=== PATIENT | male | born 1975 | race Caucasian/White ===

== ENCOUNTER 2019-10-04 06:50 | Emergency (ER) | payer OTHER ==
[~2019-10-04] VITALS: Ht 167.6 cm; Wt 77.1 kg
[~2019-10-04 06:50] MED LIST: ASPIR-LOW81 MG PO; DELTASONE20 MG PO; LOPRESSOR5 MG/5 ML PO; LUBRICANT EYE3.5 G2 OPTH; POLYTRIM EYE DR10 ML OD; ZITHROMAX250 MG PO
[2019-10-04] MEDS ORDERED: ALL DAY ALLERGY10 M3 PO (07:05)
[2019-10-04] MEDS ORDERED: ACID REDUCER20 M1 PO (07:05)
[2019-10-04] MEDS ORDERED: SALINE NASAL SP88 ML NAS (07:06)
[2019-10-04] MEDS ORDERED: XARELTO15 MG PO (10:51)
--- NOTE | 2019-10-04 17:58 | EKG ---
[facility] [address] [facility] [place] [address] Signed Atrial fibrillation with rapid ventricular response Abnormal ECG When compared with ECG of 26-AUG-2018 15:19, Atrial fibrillation has replaced Sinus rhythm Vent. rate has increased BY 91 BPM QRS duration has decreased ST now depressed in Anterior leads Confirmed by LESIA FELIX MD ([id number]) on 10/04/2019 5:57:51 PM Electronically Signed By: LESIA FELIX MD 10/04/19 1758 PATIENT NAME: PARISH SOUZA LANDY Electrocardiogram DATE OF : 77 PHYSICIAN: LESIA FELIX MD REPORT #: [id number] REPORT IS CONFIDENTIAL AND NOT TO BE RELEASED WITHOUT AUTHORIZATION
== END 2019-10-04 11:05 | disposition home or self-care (01) ==
LOC: ED 06:50
DX: I48.91 Unspecified atrial fibrillation (principal); I10 Essential (primary) hypertension; Z79.899 Other long term (current) drug therapy; Z79.82 Long term (current) use of aspirin
CPT/HCPCS: 71045; 80053; 83880; 84484; 85025; 85379; 85610; 85730; 93005; 93010; 96361; 96374; 99285-25; J1650; J7030

== ENCOUNTER 2019-10-28 14:03 | Emergency (ER) | payer OTHER ==
[~2019-10-28] VITALS: Ht 167.6 cm; Wt 77.1 kg
[~2019-10-28 14:03] MED LIST changes: +ACID REDUCER20 M1 PO; +ALL DAY ALLERGY10 M3 PO; +SALINE NASAL SP88 ML NAS; +XARELTO15 MG PO
--- OUTSIDE RECORDS SUMMARY | 2019-10-28 14:06 | XMS ---
PreManage Notification: PARISH SOUZA Security Emergency Veterinarian Events No recent Security Events currently on file CRITERIA MET - [facility] - 2 Visits in 30 Days CARE PROVIDERS There are no care providers on record at this time. Bayron has no Care Guidelines for this patient. Claud[facility] (12 MO.) [facility] T[facility] NOTE: Visits indicate total known visits. 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
[2019-10-28] MEDS ORDERED: COUMADIN6 MG PO (14:14)
[2019-10-28] MEDS ORDERED: JANTOVEN3 MG PO (14:17)
--- NOTE | 2019-10-28 19:40 | EKG ---
[facility] [address] [facility] [place], [place] [address] Signed Atrial fibrillation Rightward axis Abnormal ECG Confirmed by JOSE ALBERTO VALLE DO ([id number]) on 10/28/2019 7:40:12 PM Electronically Signed By: JOSE ALBERTO VALLE DO 10/28/191939 PATIENT NAME: PARISH SOUZA LANDY Electrocardiogram DATE OF : 77 PHYSICIAN: JOSE ALBERTO VALLE DO REPORT #: [id number] REPORT IS CONFIDENTIAL AND NOT TO BE RELEASED WITHOUT AUTHORIZATION
--- NOTE | 2019-10-28 19:41 | EKG ---
[facility] [address] [facility] [place], [place] [address] Signed Normal sinus rhythm Rightward axis Borderline ECG Confirmed by JOSE ALBERTO VALLE DO ([id number]) on 10/28/2019 7:41:03 PM Electronically Signed By: JOSE ALBERTO VALLE DO 10/28/191940 PATIENT NAME: PARISH SOUZA LANDY Electrocardiogram DATE OF : 77 PHYSICIAN: JOSE ALBERTO VALLE DO REPORT #: [id number] REPORT IS CONFIDENTIAL AND NOT TO BE RELEASED WITHOUT AUTHORIZATION
== END 2019-10-28 19:10 | disposition home or self-care (01) ==
LOC: ED 14:03
DX: I48.91 Unspecified atrial fibrillation (principal); I10 Essential (primary) hypertension; Z87.891 Personal history of nicotine dependence; Z79.899 Other long term (current) drug therapy; Z79.82 Long term (current) use of aspirin; Z79.01 Long term (current) use of anticoagulants
CPT/HCPCS: 71045; 80048; 83735; 84484; 85025; 85610; 93005; 93010; 96361; 99152; 99285-25; J2270; J2704; J7030

== ENCOUNTER 2020-02-23 20:27 | Emergency (ER) | payer OTHER ==
[~2020-02-23] VITALS: Ht 167.6 cm; Wt 77.1 kg
[~2020-02-23 20:27] MED LIST changes: +COUMADIN6 MG PO; +JANTOVEN3 MG PO
[2020-02-23] MEDS ORDERED: METOPROLOL SUCC50 MG PO (20:39)
--- NOTE | 2020-02-24 14:27 | EKG ---
[facility] [address] [facility] [place], [place] [address] Signed Normal sinus rhythm Rightward axis Borderline ECG When compared with ECG of 28-OCT-2019 17:54, QRS duration has increased Confirmed by JOSE ALBERTO VALLE DO ([id number]) on 02/24/2020 2:27:07 PM Electronically Signed By: JOSE ALBERTO VALLE DO 02/24/20 1427 PATIENT NAME: PARISH SOUZA LANDY Electrocardiogram DATE OF : [birth year] PHYSICIAN: JOSE ALBERTO VALLE DO REPORT #: [id number] REPORT IS CONFIDENTIAL AND NOT TO BE RELEASED WITHOUT AUTHORIZATION
== END 2020-02-23 23:15 | disposition home or self-care (01) ==
LOC: ED 20:27
DX: I48.0 Paroxysmal atrial fibrillation (principal); I10 Essential (primary) hypertension; K21.9 Gastro-esophageal reflux disease without esophagitis; Z87.891 Personal history of nicotine dependence; Z79.82 Long term (current) use of aspirin; Z79.899 Other long term (current) drug therapy
CPT/HCPCS: 71045; 80053; 83735; 84484; 85025; 93005; 93010; 99284-25

== ENCOUNTER 2020-03-18 20:32 | Emergency (ER) | payer OTHER ==
[~2020-03-18] VITALS: Ht 167.6 cm; Wt 79.4 kg
--- OUTSIDE RECORDS SUMMARY | ~2020-03-18 | XMS | Encounter Summary ---
Demographics + + + | Address | [address] | | | [place] [address] | + + + | Home Phone | | + + + | Preferred Language | Unknown | + + + | Marital Status | Unknown | + + + | Druze Affiliation | Unknown | + + + | Race | Unknown | + + + | Ethnic Group | Unknown | + + + Author + + + | Author | [facility] | | | and [place] | + + + | Organization | [facility] | | | and [place] | + + + | Address | Unknown | + + + | Phone | Unavailable | + + + Support + + +---------+ + | Name | Relationship | Address | Phone | + + +---------+ + | [place] | ECON | Unknown | | | [facility]rections | | | | + + +---------+ + Care Team Providers + +------+ + | Care Salesperson Terrazzo [employer] Name | Role | Phone | + +------+ + | Marilin MarieP | PCP | | + +------+ + Reason for Referral Evaluate & Treat (Routine) +--------+ + + + + + | Status | Reason | Specialty | Diagnoses / | Referred By | Referred To | | | | | Procedures | Contact | Contact | +--------+ + + + + + | Closed | Specialty | Cardiology | Diagnoses | Sixto, | Robbin, | | | Services | | Paroxysmal | MD Renee | Gerson | | | Required | | atrial | [address] | MD [address] | | | | | fibrillation | [address] | [address] | | | | | ([facility]) | [address] | [address] | | | | | | [facility] [place] | [place] | | | | | | [address] | [address] Phone: | | | | | | Phone: | [phone] | | | | | | [phone] | Fax: | | | | | | Fax: | [phone] | | | | | | [phone] | | +--------+ + + + + + Reason for Visit + + + | Reason | Comments | + + + | Follow-up | | + + + Evaluate & Treat (Routine) +--------+--------+ + + + + | Status | Reason | Specialty | Diagnoses / | Referred By | Referred To | | | | | Procedures | Contact | Contact | +--------+--------+ + + + + | Closed | | Cardiology | Diagnoses | Frank, | Sixto | | | | | Unspecified | Marilin | MD Renee | | | | | atrial | TERESA SilverP | [address] | | | | | fibrillation | [address] | [address] | | | | | ([facility]) | [place] | [place], [place] | | | | | Dizziness | [place], | [address] Phone: | | | | | and | [place] | [phone] | | | | | giddiness | [address] | Fax: | | | | | Procedures | Phone: | [phone] | | | | | Consult | [phone] | | | | | | | Fax: | | | | | | | [phone] | | +--------+--------+ + + + + Encounter Details +--------+---------+ + + + | Date | Type | Department | Care Team | Description | +--------+---------+ + + + | 12/10/ | Office | [facility] | Renee Pollard, | Paroxysmal atrial | | 2020 | Visit | CARDIOLOGY [place] | [address] | fibrillation ([facility]) | | | | [address] | [place], [place] | (Primary Dx) | | | | [address] | [address] | | | | | [place] | | | | | | [address] | | | | | | [phone] | | | +--------+---------+ + + + Social History + +-------+ [...] + + documented as of this encounter Last Filed Vital Signs + + + + + | Vital Sign | Reading | Time Taken | Comments | + + + + + | Blood Pressure | 100/64 | 12/11/2019 8:58 AM | LEFT 102/68 | | | | PDT | | + + + + + | Pulse | 68 | 12/11/2019 8:58 AM | | | | | PDT | | + + + + + | Temperature | - | - | | + + + + + | Respiratory Rate | - | - | | + + + + + | Oxygen Saturation | 92% | 12/11/2019 8:58 AM | | | | | PDT | | + + + + + | Inhaled Oxygen | - | - | | | Concentration | | | | + + + + + | Weight | 78.9 kg (174 lb) | 12/11/2019 8:58 AM | | | | | PDT | | + + + + + | Height | 167.6 cm (5' 6") | 12/11/2019 8:58 AM | | | | | PDT | | + + + + + | Body Mass Index | 28.08 | 12/11/2019 8:58 AM | | | | | PDT | | + + + + + documented in this encounter Progress Notes Renee Pollard MD - 12/11/2019 9:00 AM PDTFormatting of this note might be different f rom the original. Date of visit: 12/11/2019 Primary Care Physician: ALEKSANDRA Jenkins CHIEF COMPLAINT: Chief Complaint Patient presents with Follow-up HISTORY OF PRESENT ILLNESS: Sanjay is 44 y.o. here for evaluation of palpitation, was diagnosed with paroxysmal atrial fi brillation. [facility]. Noted to having episodes of palpitation at young age. Usually associated with chest discom fort and some dizziness. He was evaluated by cardiology at young age of 32 had an event mon itor at that time, had an episode while reading he was taken to emergency room at that time. Then he was started on metoprolol however he never was compliant with it. Recently was ev aluated at [facility] twice in September and again in October, he was cardioverte d in October with 100 J synchronized shock was started on increased dose of metoprolol 50 m g daily. Continues to have rare episodes. Usually associated with vision changes. No history of diabetes or hypertension. Denies any smoking or alcohol abuse. Past medical history, SH, FH, and medications were reviewed in the chart. Medications: Outpatient Encounter Medications as of 12/11/2019 Medication Sig Dispense Refill aspirin 81 mg EC tablet Take 81 mg by mouth Daily. cetirizine (ZYRTEC) 10 mg tablet Take 10 mg by mouth Daily. metoprolol tartrate (LOPRESSOR) 50 mg tablet Take 50 mg by mouth Daily. omeprazole (PRILOSEC) 20 mg capsule Take 20 mg by mouth every morning (before breakfast ). Saline (SODIUM CHLORIDE NA) 104 mLs by Nasal route. warfarin (COUMADIN) 5 mg tablet Take 5 mg by mouth Daily. No facility-administered encounter medications on file as of 12/11/2019. Allergies Allergies Allergen Reactions Ibuprofen Other (See Comments) Urinating and couging blood. Generic Ibuprofen REVIEW OF SYSTEMS: Constitutional: negative for fatigue. No fever, chills, and rigors. No report of weight ch angelica. HEENT: Negative for nosebleeds, ear discharge, nasal congestion or soar throat. Eyes: Negative for visual disturbance, redness, or secretion. Respiratory: Negative for cough, sputum production, hemoptysis, wheezing. Cardiovascular: As HPI. Gastrointestinal: Negative for nausea, vomiting, diarrhea, abdominal pain and blood in stoo l. Genitourinary: Negative for dysuria or hematuria. Musculoskeletal: Negative for myalgias, back pain or arthralgia. Skin: Negative for rash. Neurological: Negative for dizziness. No numbness. No recent falls. No slurred speech. Hematological: No significant bruising. Psychiatric/Behavioral: No depression or anxiety. PHYSICAL EXAM Vital Signs: BP 100/64 Comment: LEFT 102/68 | Pulse 68 | Ht 1.676 m (5' 6") | Wt 78.9 kg (174 lb) | S pO2 92% | BMI 28.08 kg/m GENERAL APPEARANCE: Alert, oriented, cooperative, no distress, appears stated age. HEENT: Extraocular movements were intact. No jaundice. Pupiles round and reactive. NECK: No JVD, lymphadenopathy. Carotid upstrokes normal. No carotid bruit heard. CARDIAC: Regular rhythm and rate. There is normal S1 and S2. No galop. No murmur. CHEST: Normal bilateral symmetrical chest excursion.ackles or wheezing. No evidence of dull ness. ABDOMEN: Soft.No tenderness or guarding. No palpable organs. Active bowel sounds. EXTREMITIES: No lower extremities edema, cyanosis or clubbing. NEURO: Alert and oriented times three with no focal deficit. Cranial nerves are grossly no rmal. SKIN: Warm and dry. No rash. Psych: Normal affect and mood. DATA 10/28/2019 WBC 8.7, hemoglobin 17.4, platelets 275, sodium 140, potassium 3.3, chloride 104, bicarb 26 , BUN 17, creatinine 1.626, GFR 62, magnesium 2.2, troponin less than 0.01. No results found for: NA, K, CO2, BUN, CREA, CALCIUM, MG No results found for: WBC, HGB, HCT, MCV, LABPLAT No results found for: ALT, CHOL, TRIG, HDL, LDLEX, GLUF, TSH EC10/28/2019 Normal sinus rhythm, right axis. 10/28/2019 From [facility] reviewed showed atrial fibrillation with a heart rate of 93 bpm . Last Echo: 2017 Normal LV and function EF 60%. Normal right ventricular size and function. No significant valvular pathology. Last Stress test: Last Cath: Last US carotid: ASSESSMENT: Patient is 44 y.o. with 1. Paroxysmal atrial fibrillation, CHADSVASc score of 0. Plan: Reviewed patient's records. Cussed with the patient rhythm versus rate control strategy, treatment options and anticoag ulation. At this time patient score of 0 and his warfarin can be stopped and patient can be treated with aspirin. Metoprolol tartrate will be changed to metoprolol succinate 50 mg daily. Propafenone 450 mg once daily as needed for palpitations/atrial fibrillation can be used. If patient have recurrent episodes of atrial fibrillation done flecainide will be started. Will be referred for electrophysiology evaluation in regard to atrial fibrillation ablation . Will call with any change in symptoms. Thank you for allowing us the chance to participate in the care of this patient. *This report has been prepared using a voice recognition system. The report was reviewed fo r accuracy, however, sound-alike word errors, addition and/or deletions may occur. If there is any question about this report please contact me. Renee Pollard MD, MPH documented in this encounter Plan of Treatment +--------+ + + + + | Date | Type | Specialty | Care Team | Description | +--------+ + + + + | 03/19/ | Appointment | Radiology | Gerson Rey | | | 2019 | | | MD Clark [address] | | | | | | [address] | | | | | | [place] [address] | | | | | | [phone] | | | | | | | | +--------+ + + + + | 03/19/ | Hospital | Radiology | Gerson Rey | | 2019 | Encounter | | MD Clark [address] | | | | | | [address] | | | | | | [place] [address] | | | | | | [phone] | | | | | | | | | | | | Imaging, [facility] | | +--------+ + + + + | 04/01/ | Office | Cardiology | Gerson Rey | | | 2019 | Visit | | MD Nino Rodas | | | | | | [address] | | | | | | [place] [address] | | | | | | [phone] | | | | | | | | +--------+ + + + + | 07/15/ | Office | Cardiology | Renee Pollard, | | | 2019 | Visit | | MD Nino JONES | | | | | | [place] | | | | | | [address] | | | | | | | | +--------+ + + + + + + +--------+ + + | Name | Type | Priori | Associated Diagnoses | Order Schedule | | | | ty | | | + + +--------+ + + | Ambulatory referral | Outpatient | Routin | Paroxysmal atrial | Ordered: 12/11/2019 | | to [facility] Cardiac | Referral | e | fibrillation (HCC) | | | Electrophysiology | | | | | | [place] | | | | | + + +--------+ + + documented as of this encounter Procedures + +--------+ + + + | Procedure Name | Priori | Date/Time | Associated Diagnosis | Comments | | | ty | | | | + +--------+ + + + | LABS - EXTERNAL SCAN | | 12/19/2019 | | Results for this | | | | 12:00 AM | | procedure are in the | | | | PDT | | results section. | + +--------+ + + + documented in this encounter Results LABS - EXTERNAL SCAN (12/19/2019 12:00 AM PDT) + + + | Narrative | Performed At | + + + | Ordered by an | | | unspecified provider. | | + + + documented in this encounter Visit Diagnoses + + | Diagnosis | + + | Paroxysmal atrial fibrillation (HCC) - Primary Atrial fibrillation | + + documented in this encounter
--- OUTSIDE RECORDS SUMMARY | ~2020-03-18 | XMS | Clinical Summary ---
Demographics + + + | Address | [address] | | | [place] [address] | + + + | Home Phone | | + + + | Preferred Language | Unknown | + + + | Marital Status | Unknown | + + + | Christian Affiliation | Unknown | + + + | Race | Unknown | + + + | Ethnic Group | Unknown | + + + Author + + + | Author | [facility] | | | and [place] | + + + | Organization | [facility] | | | and [place] | + + + | Address | Unknown | + + + | Phone | Unavailable | + + + Support + + +---------+ + | Name | Relationship | Address | Phone | + + +---------+ + | [place] | ECON | Unknown | | | Corrections | | | | + + +---------+ + Care Team Providers + +------+ + | Care Preforms Laminator Name | Role | Phone | + +------+ + | Marilin MarieP | PCP | | + +------+ + Allergies + + + + + + | Active Allergy | Reactions | Severity | Noted | Comments | | | | | Date | | + + + + + + | Ibuprofen | Other (See Comments) | | 12/11/19 | Urinating and | | | | | 20 | couging blood. | | | | | | Generic Ibuprofen | + + + + + + Medications + + + +---------+------+------+-------+ | Medication | Sig | Dispensed | Refills | Star | End | Statu | | | | | | t | Date | s | | | | | | Date | | | + + + +---------+------+------+-------+ | cetirizine | Take 10 mg by mouth | | 0 | | | Activ | | (ZYRTEC) 10 mg | Daily. | | | | | e | | tablet | | | | | | | + + + +---------+------+------+-------+ | omeprazole | Take 20 mg by mouth | | 0 | | | Activ | | (PRILOSEC) 20 mg | every morning | | | | | e | | capsule | (before breakfast). | | | | | | + + + +---------+------+------+-------+ | Saline (SODIUM | 104 mLs by Nasal | | 0 | | | Activ | | CHLORIDE NA) | route. | | | | | e | + + + +---------+------+------+-------+ | metoprolol | Take 1 tablet by | 90 | 2 | 04/0 | | Activ | | succinate | mouth Daily. | tablet | | 1/20 | | e | | (TOPROL-XL) 50 mg 24 | | | | 20 | | | | hr tablet | | | | | | | + + + +---------+------+------+-------+ | propafenone | Take 1.5 tablets by | 90 | 3 | 04/0 | 04/0 | Activ | | (RYTHMOL) 300 MG | mouth Daily as | tablet | | 1/20 | 1/20 | e | | tablet | needed (for atrial | | | 20 | 21 | | | | fibrillation). | | | | | | + + + +---------+------+------+-------+ | aspirin 325 mg EC | Take 1 tablet by | | 0 | 05/0 | | Activ | | tabletIndications: | mouth Daily. | | | 02/28 | | e | | Paroxysmal atrial | | | | 20 | | | | fibrillation (HCC) | | | | | | | + + + +---------+------+------+-------+ Active Problems + + + | Problem | Noted Date | + + + | Paroxysmal atrial fibrillation | 01/10/2017 | + + + Encounters +--------+ + + + + | Date | Type | Specialty | Care Team | Description | +--------+ + + + + | 06/03/ | Office | Cardiology | Deandra Rey | Paroxysmal atrial | | 2019 | Visit | | MD [facility] | fibrillation (HCC) | | | | | | (Primary Dx) | +--------+ + + + + | 01/14/ | Office | Cardiology | Deandra Rey | Paroxysmal atrial | | 2019 | Visit | | MD [facility] | fibrillation (HCC) | | | | | | (Primary Dx) | +--------+ + + + + | 12/17/ | Telephone | Cardiology | Renee Henson, | Medication Question | | 2019 | | | | (Propafenone) | +--------+ + + + + from Last 3 Months Family History + +------+--------+ + | Relation | Name | Status | Comments | + +------+--------+ + | Mother | | Alive | | + +------+--------+ + Social History + +-------+ +--------+------+ | [...] on file | | + + + Last Filed Vital Signs + + + + + | Vital Sign | Reading | Time Taken | Comments | + + + + + | Blood Pressure | 135/82 | 02/12/2020 8:30 AM | | | | | PDT | | + + + + + | Pulse | 71 | 02/12/2020 8:30 AM | | | | | PDT | | + + + + + | Temperature | - | - | | + + + + + | Respiratory Rate | - | - | | + + + + + | Oxygen Saturation | 95% | 02/12/2020 8:30 AM | | | | | PDT | | + + + + + | Inhaled Oxygen | - | - | | | Concentration | | | | + + + + + | Weight | 77.6 kg (171 lb) | 02/12/2020 8:30 AM | | | | | PDT | | + + + + + | Height | 167.6 cm (5' 6") | 02/12/2020 8:30 AM | | | | | PDT | | + + + + + | Body Mass Index | 27.6 | 02/12/2020 8:30 AM | | | | | PDT | | + + + + + Plan of Treatment +--------+ + + + + | Date | Type | Specialty | Care Team | Description | +--------+ + + + + | 03/19/ | Appointment | Radiology | Deandra Rey | | | 2019 | | | MD [facility] [address] | | | | | [address] | | | | | | [place] [address] | | | | | | [phone] | | | | | | | | +--------+ + + + + | 03/19/ | Hospital | Radiology | Deandra Rey | | 2019 | Encounter | | MD Nino Rodas | | | | | | [address] | | | | | | [place] [address] | | | | | | [phone] | | | | | | | | | | | | [facility], [facility] FURRIER DESIGNER | | +--------+ + + + + | 04/01/ | Office | Cardiology | Deandra Rey | | | 2019 | Visit | | MD Nino Rodas | | | | | | [address] | | | | | | [place] [address] | | | | | | [phone] | | | | | | | | +--------+ + + + + | 07/15/ | Office | Cardiology | Renee Henson, | | | 2019 | Visit | | MD Nino JONES | | | | | | [place] | | | | | | [address] | | | | | | | | +--------+ + + + + + + +-------+ + | Health Maintenance | Due Date | Last | Comments | | | | Done | | + + +-------+ + | Vaccine: | | | | | Dtap/Tdap/Td (1 - | 5 | | | | Tdap) | | | | + + +-------+ + | Vaccine: Influenza | | | | | (#1) | 0 | | | + + +-------+ + Procedures + +--------+ + + + | Procedure Name | Priori | Date/Time | Associated Diagnosis | Comments | | | ty | | | | + +--------+ + + + | ECG 12 LEAD | Routin | 02/12/2020 | Paroxysmal atrial | Results for this | | | e | 8:27 AM | fibrillation (HCC) | procedure are in the | | | | PDT | | results section. | + +--------+ + + + | ECG 12 LEAD | Routin | 01/15/2020 | Paroxysmal atrial | Results for this | | | e | 9:36 AM | fibrillation (HCC) | procedure are in the | | | | PDT | | results section. | + +--------+ + + + | LABS - EXTERNAL SCAN | | 12/19/2019 | | Results for this | | | | 12:00 AM | | procedure are in the | | | | PDT | | results section. | + +--------+ + + + from Last 3 Months Results ECG 12 lead (02/12/2020 8:27 AM PDT)Only the most recent of 2 results within the time marilee od is included. + + + + + + | Component | Value | Ref Range | Performed | Pathologist | | | | | At | Signature | + + + + + + | VENTRICULAR | 70 | BPM | [facility] | | | RATE EKG | | | | | + + + + + + | ATRIAL RATE | 70 | BPM | [facility] | | + + + + + + | P-R | 154 | ms | [facility] | | | INTERVAL | | | | | + + + + + + | QRS | 100 | ms | [facility] | | | DURATION | | | | | + + + + + + | Q-T | 364 | ms | [facility] | | | INTERVAL | | | | | + + + + + + | Q-T | 393 | ms | [facility] | | | INTERVAL | | | | | | (CORRECTED) | | | | | + + + + + + | P WAVE AXIS | 48 | degrees | [facility] | | + + + + + + | QRS AXIS | 73 | degrees | [facility] | | + + + + + + | T AXIS | 52 | degrees | [facility] | | + + + + + + | INTERPRETAT | Please refer to | | [facility] | | | ION TEXT | Providers office visit | | | | | | note for Providers | | | | | | Interpretation.Confirmed | | | | | | by DEANDRA REY MD | | | | | | ([id number]) on 02/17/2020 | | | | | | 9:36:58 AM | | | | + + + + + + + + | Specimen | + + | | + + + + + | Narrative | Performed At | + + + | | | + + + + +---------+ + + | Performing | Address | City/State/Zipcode | Phone Number | | Organization | | | | + +---------+ + + | [facility] | | | | + +---------+ + + LABS - EXTERNAL SCAN (12/19/2019 12:00 AM PDT) + + + | Narrative | Performed At | + + + | Ordered by an | | | unspecified provider. | | + + + from Last 3 Months Insurance + +--------+ +--------+-------+---------+--------+ | Payer | Benefi | Subscriber | Effect | Phone | Address | Type | | | t Plan | ID | chauncey | | | | | | / | | Dates | | | | | | Group | | | | | | + +--------+ +--------+-------+---------+--------+ | DEPARTMENT OF | CORRCT | [id number] | | | | Indemn | | CORRECTIONS | [place] | | 014-Pr | | | ity | | | HLTH | | esent | | | | | | FIRST | | | | | | | | [place] | | | | | | + +--------+ +--------+-------+---------+--------+ + +--------+ +--------+ + + | Guarantor Name | Accoun | Relation to | Date | Phone | Billing Address | | | t Type | Patient | of | | | | | | | | | | + +--------+ +--------+ + + | CORRECTIONS,MICHELL | Corpor | Employer | [birth year] | | [address] | | [place] | ate | | 1900 | [phone] | [address] [facility] | | | | | | [address] (Home) | [place] [address] | | | | | | [phone] | | | | | | | 0 (Work) | | + +--------+ +--------+ + + Advance Directives + + + + + | Type | Date Recorded | Patient | Explanation | | | | Chief Green Officer | | + + + + + | Power of | | | | | Tire Servicer | | | | + + + + + | Advance | | | | | Directive | | | | + + + + +
--- OUTSIDE RECORDS SUMMARY | ~2020-03-18 | XMS | Encounter Summary ---
Demographics + + + | Address | [address] | | | [place] [address] | + + + | Home Phone | | + + + | Preferred Language | Unknown | + + + | Marital Status | Unknown | + + + | Moravian Affiliation | Unknown | + + + | Race | Unknown | + + + | Ethnic Group | Unknown | + + + Author + + + | Author | [facility] | | | and [place] | + + + | Organization | [facility] | | | and [place] | + + + | Address | Unknown | + + + | Phone | Unavailable | + + + Support + + +---------+ + | Name | Relationship | Address | Phone | + + +---------+ + | [place] | ECON | Unknown | | | Corrections | | | | + + +---------+ + Care Team Providers + +------+ + | Care Mobile Game Engineer Name | Role | Phone | + +------+ + | Marilin MarieP | PCP | | + +------+ + Reason for Visit + +--------+ + | Reason | Onset | Comments | | | Date | | + +--------+ + | Medication Question | 12/17/ | Propafenone | | | 2020 | | + +--------+ + Encounter Details +--------+ + + + + | Date | Type | Department | Care Team | Description | +--------+ + + + + | 12/17/ | Telephone | [facility] | Renee Henson, | Medication Question | | 2019 | | CARDIOLOGY ALESS[place]O | [address] | (Propafenone) | | | | [address] | [place], [place] | | | | | [address] | [address] | | | | | [place] | | | | | | [address] | | | | | | [phone] | | | +--------+ + + + [...] + + documented as of this encounter Miscellaneous Notes Telephone Encounter - Brendon Wilburn Sand Carrier - 12/18/2019 10:54 AM PDTCalled N P to inform, he states understanding with no further questions. MALCOLM Grey elep wei Encounter - Brendon Wilburn Medical Assistant - 12/18/2019 10:54 AM PDT----- Message from Renee Henson MD sent at 12/18/2019 8:50 AM PDT ----- It is 450 mg as needed once daily for atrial fibrillation. ----- Message ----- From: Wendy Grey Assistant Sent: 12/17/2019 3:14 PM PDT To: Renee Henson MD [facility] [employer] [facility] wanted to confirm dose of Propafenone. States patient was previously on 300mg, but new script was written for 450mg. They are wanting to confirm he is to increase PRN to 450mg. Please advise. ----- Message ----- From: Diana Zepeda CMA Sent: 12/17/2019 1:08 PM PDT To: Wendy Grey ph. [phone] docum ented in this encounter Plan of Treatment +--------+ + + + + | Date | Type | Specialty | Care Team | Description | +--------+ + + + + | 03/19/ | Appointment | Radiology | Gerson Rey | | | 2019 | | | MD Nino Rodas | | | | | | [address] | | | | | | [place] [address] | | | | | | [phone] | | | | | | | | +--------+ + + + + | 03/19/ | Hospital | Radiology | Gerson Rey | | | 2019 | Encounter | | MD Nino Rodas | | | | | | [address] | | | | | | [place] [address] | | | | | | [phone] | | | | | | | | | | | | Imaging, [facility] PSYCHIATRIC TECHNICIAN ASSISTANT | | +--------+ + + + + | 04/01/ | Office | Cardiology | Gerson Rey | | | 2019 | Visit | | MD Nino Rodas | | | | | | [address] | | | | | | [place] [address] | | | | | | [phone] | | | | | | | | +--------+ + + + + | 07/15/ | Office | Cardiology | Renee Henson, | | | 2019 | Visit | | MD Nino JONES | | | | | | [place] | | | | | | [address] | | | | | | | | +--------+ + + + + documented as of this encounter Visit Diagnoses Not on filedocumented in this encounter"
--- OUTSIDE RECORDS SUMMARY | ~2020-03-18 | XMS | Encounter Summary ---
Demographics + + + | Address | [address] | | | [place] [address] | + + + | Home Phone | | + + + | Preferred Language | Unknown | + + + | Marital Status | Unknown | + + + | Shinto Affiliation | Unknown | + + + | Race | Unknown | + + + | Ethnic Group | Unknown | + + + Author + + + | Author | [facility] | | | and [place] | + + + | Organization | [facility] | | | and [place] | + + + | Address | Unknown | + + + | Phone | Unavailable | + + + Support + + +---------+ + | Name | Relationship | Address | Phone | + + +---------+ + | [place] | ECON | Unknown | | | Corrections | | | | + + +---------+ + Care Team Providers + +------+ + | Care Communication Center Operator Name | Role | Phone | + +------+ + | Aidan Goncalves MD | PCP | | + +------+ + Encounter Details +--------+ + + + + | Date | Type | Department | Care Team | Description | +--------+ + + + + | 03/31/ | Orders Only | [facility] | Renee Henson, | | | 2017 | | CONVERSION [address] | [address] | | [address] | [place] | | | | | [place] | [address] | | | | | [address] | | | | | | [phone] | | | +--------+ + + + + Social History + +-------+ +--------+------+ | Tobacco Use | Types | Packs/Day | Years | Date | | | | | Used | | + +-------+ +--------+------+ | Former Smoker | | | | | + +-------+ +--------+------+ + + + | Sex Assigned at | Date Recorded | | | | + + + | Not on file | | + + + documented as of this encounter Plan of Treatment +--------+ + + + + | Date | Type | Specialty | Care Team | Description | +--------+ + + + + | 03/19/ | Appointment | Radiology | Gerson Rey | | | 2019 | | | [address] | | | | | | [address] | | | | | | [place] [address] | | | | | | [phone] | | | | | | | | +--------+ + + + + | 03/19/ | Hospital | Radiology | Gerson Rey | | | 2019 | Encounter | | MD [address] | | | | | | [address] | | | | | | [place] [address] | | | | | | [phone] | | | | | | | | | | | | Imaging, [facility] 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 | | +--------+ + + + + | 04/01/ | Office | Cardiology | Gerson Rey | | | 2019 | Visit | | MD [address] | | | | | | [address] | | | | | | [place] [address] | | | | | | [phone] | | | | | | | | +--------+ + + + + | 07/15/ | Office | Cardiology | Renee Henson, | | | 2019 | Visit | | [address] | | | | | | [place] [facility] [place] | | | | | | [address] | | | | | | | | +--------+ + + + + documented as of this encounter Procedures + +--------+ + + + | Procedure Name | Priori | Date/Time | Associated Diagnosis | Comments | | | ty | | | | + +--------+ + + + | ECHO INTERPRETATION | Routin | 03/31/2017 | | Results for this | | OF OUTSIDE FILMS | e | 7:19 AM | | procedure are in the | | | | PDT | | results section. | + +--------+ + + + documented in this encounter Results ECHO Interpretation of Outside Films (03/31/2017 7:19 AM PDT) + + | Specimen | + + | | + + + + + | Impressions | Performed At | + + + | 1. The left ventricle is normal in size, wall thickness and systolic | | | function EF 55-60%. 2. The right ventricle is normal in size and | | | systolic function. 3. No significant valvular pathology. 4. There is | | | no pericardial effusion. | | + + + + + + | Narrative | Performed At | + + + | Patient Name: Sanjay Sweeney Date of : 1975 | | | Performing Physician: Renee Henson | | | | | | INDICATIONS Paroxysmal A-fib CONCLUSIONS | | | 1. The left ventricle is normal in size, wall thickness | | | and systolic function EF 55-60%. 2. The right ventricle is normal in | | | size and systolic function. 3. No significant valvular pathology. 4. | | | There is no pericardial effusion. FINDINGS -------- ECG rhythm: | | | Sinus rhythm. ECG rhythm: Resting bradycardia (HR<60bpm). Study: A | | | 2-dimensional transthoracic echocardiogram with m-mode, spectral and | | | color flow Doppler was perfomed. Study: This was a technically | | | adequate study. Left Ventricle: Overall left ventricular systolic | | | function is normal with, an EF between 55 - 60 %. Left Ventricle: The | | | left ventricle cavity size is normal. Left Ventricle: Left | | | ventricular wall thickness is normal. Left Ventricle: No regional | | | wall motion abnormalities. Left Ventricle: The diastolic filling | | | pattern is normal for the age of the patient. Right Ventricle: The | | | right ventricle is normal in size. Right Ventricle: The right | | | ventricular systolic function is normal. Left Atrium: The left atrium | | | is normal in size. Right Atrium: The right atrium is normal in size. | | | Aortic Valve: The aortic valve is trileaflet and appears | | | structurally normal. Aortic Valve: There is no evidence of aortic | | | regurgitation. Aortic Valve: There is no evidence of aortic stenosis. | | | Mitral Valve: The mitral valve is normal. Mitral Valve: There is | | | trace mitral regurgitation. Mitral Valve: Mild thickening of the | | | anterior mitral valve leaflet. Tricuspid Valve: The tricuspid valve | | | appears structurally normal. Tricuspid Valve: Trace tricuspid | | | regurgitation present. Tricuspid Valve: There is no evidence of | | | pulmonary hypertension. Tricuspid Valve: The right ventricular | | | systolic pressure (pulmonary artery systolic pressure), as measured by | | | Doppler, is 23.77mmHg. Pulmonic Valve: The pulmonic valve is normal. | | | Pulmonic Valve: Trace pulmonic regurgitation. Pulmonic Valve: No | | | significant valvular pathology. Pericardium: There is no pericardial | | | effusion. Pericardium: No pleural effusion seen. IVC/Hepatic Veins: | | | The IVC is normal size (1.5-2.5cm) and collapses >50% with sniff, | | | consistent with central venous pressures of 5-10mmHg. Aorta: The | | | aortic root, ascending aorta and aortic arch are withi normal | | | dimensions. MEASUREMENTS Ao asc: 2.97 cm Ao | | | Diam: 3.33 cm Ao sinus: 3.[address] junct: 2.84 cm IVC: | | | 1.54 cm LA Diam: 3.85 cm LA Major: 4.69 cm EDV(Teich): | | | 123.49 ml IVSd: 0.88 cm LVIDd: 5.09 cm LVPWd: 0.98 cm | | | LVOT Area: 3.86 cm2 LVOT Diam: 2.21 cm %FS: 31.77 % | | | EF(Teich): 59.49 % ESV(Teich): 50.01 ml LVIDs: 3.47 cm | | | SV(Teich): 73.47 ml RA Major: 4.62 cm RV Major: 6.53 cm | | | RVIDd: 2.40 cm LVEF MOD A2C: 61.79 % SV MOD A2C: 66.16 ml | | | LVEF MOD A4C: 51.68 % SV MOD A4C: 53.37 ml EF Biplane: | | | 55.52 % LVEDV MOD BP: 106.08 ml LVESV MOD BP: 47.17 ml LVEDV | | | MOD A2C: 107.06 ml LVLd A2C: 7.57 cm LVEDV MOD A4C: 103.25 | | | ml LVLd A4C: 7.72 cm LVESV MOD A2C: 40.90 ml LVLs A2C: | | | 6.04 cm LVESV MOD A4C: 49.88 ml LVLs A4C: 6.67 cm LAESV(A-L): | | | 47.60 ml LAESV Index (A-L): 25.73 ml/m2 LAAs A2C: 16.22 | | | cm2 LAESV A-L A2C: 43.96 ml LALs A2C: 5.08 cm LAAs A4C: | | | 16.75 cm2 LAESV A-L A4C: 49.15 ml LALs A4C: 4.84 cm RAAs: | | | 13.81 cm2 RAESV A-L: 33.83 ml RAESV MOD: 33.16 ml RALs: | | | 4.78 cm TAPSE: 2.49 cm AV maxP.63 mmHg AV meanP.44 | | | mmHg AV Vmax: 1.18 m/s AV Vmean: 0.90 m/s AV VTI: 25.14 | | | cm KAEL Vmax: 3.19 cm2 KAEL (VTI): 2.97 cm2 AVAI Vmax: 0.00 | | | cm2/m2 AVAI (VTI): 0.00 cm2/m2 LVOT maxP.84 mmHg LVOT | | | meanP.98 mmHg LVSI Dopp: 40.44 ml/m2 LVSV Dopp: 74.81 | | | ml LVOT Vmax: 0.98 m/s LVOT Vmean: 0.63 m/s LVOT VTI: | | | 19.34 cm MV A Deacon: 0.50 m/s MV DecT: 167.58 ms MV E Deacon: | | | 0.53 m/s MV E/A Ratio: 1.04 MV PHT: 48.59 ms MVA By PHT: | | | 4.52 cm2 Septal e': 0.08 m/s Septal E/e': 6.60 Lateral e': | | | 0.11 m/s Lateral E/e': 4.84 RAP: 5 mmHg RVSP: 23.76 mmHg | | | TR maxP.76 mmHg TR Vmax: 2.16 m/s Public Service Officer: ALYSIA | | | Authenticated by: Renee Henson Report Date/Time: 04-03-2017 | | | 19:23:20 | | + + + + + | Procedure Note | + + | Rad [facility]ano Conversion - 05/02/2019 8:01 PM PDT Patient Name: Estrellita Sweeney of | | : 1975 Performing Physician: Renee | | [place] INDICATIONS------ | | -----Paroxysmal A-fib CONCLUSIONS 1. The left ventricle is normal in size, | | wall thickness and systolic function EF 55-60%.2. The right ventricle is normal in size | | and systolic function.3. No significant valvular pathology.4. There is no pericardial | | effusion. FINDINGS--------ECG rhythm: Sinus rhythm.ECG rhythm: Resting bradycardia | | (HR<60bpm).Study: A 2-dimensional transthoracic echocardiogram with m-mode, spectral and | | color flow Doppler was perfomed.Study: This was a technically adequate study.Left | | Ventricle: Overall left ventricular systolic function is normal with, an EF between 55 - | | 60 %.Left Ventricle: The left ventricle cavity size is normal.Left Ventricle: Left | | ventricular wall thickness is normal.Left Ventricle: No regional wall motion | | abnormalities.Left Ventricle: The diastolic filling pattern is normal for the age of the | | patient.Right Ventricle: The right ventricle is normal in size.Right Ventricle: The | | right ventricular systolic function is normal.Left Atrium: The left atrium is normal in | | size.Right Atrium: The right atrium is normal in size.Aortic Valve: The aortic valve is | | trileaflet and appears structurally normal.Aortic Valve: There is no evidence of aortic | | regurgitation.Aortic Valve: There is no evidence of aortic stenosis.Mitral Valve: The | | mitral valve is normal.Mitral Valve: There is trace mitral regurgitation.Mitral Valve: | | Mild thickening of the anterior mitral valve leaflet.Tricuspid Valve: The tricuspid | | valve appears structurally normal.Tricuspid Valve: Trace tricuspid regurgitation | | present.Tricuspid Valve: There is no evidence of pulmonary hypertension.Tricuspid Valve: | | The right ventricular systolic pressure (pulmonary artery systolic pressure), as | | measured by Doppler, is 23.77mmHg.Pulmonic Valve: The pulmonic valve is normal.Pulmonic | | Valve: Trace pulmonic regurgitation.Pulmonic Valve: No significant valvular | | pathology.Pericardium: There is no pericardial effusion.Pericardium: No pleural effusion | | seen.IVC/Hepatic Veins: The IVC is normal size (1.5-2.5cm) and collapses >50% with | | sniff, consistent with central venous pressures of 5-10mmHg.Aorta: The aortic root, | | ascending aorta and aortic arch are withi normal dimensions. MEASUREMENTS Ao | | asc: 2.97 cmAo Diam: 3.33 cmAo sinus: 3.[address] junct: 2.84 cmIVC: 1.54 | | cmLA Diam: 3.85 cmLA Major: 4.69 cmEDV(Teich): 123.49 mlIVSd: 0.88 cmLVIDd: | | 5.09 cmLVPWd: 0.98 cmLVOT Area: 3.86 [id number] Diam: 2.21 cm%FS: 31.77 %EF(Teich): | | 59.49 %ESV(Teich): 50.01 mlLVIDs: 3.47 cmSV(Teich): 73.47 mlRA Major: 4.62 | | cmRV Major: 6.53 cmRVIDd: 2.40 cmLVEF MOD A2C: 61.79 %SV MOD A2C: 66.16 mlLVEF | | MOD A4C: 51.68 %SV MOD A4C: 53.37 mlEF Biplane: 55.52 %LVEDV MOD BP: 106.08 | | mlLVESV MOD BP: 47.17 mlLVEDV MOD A2C: 107.06 mlLVLd A2C: 7.57 cmLVEDV MOD A4C: | | 103.25 mlLVLd A4C: 7.72 cmLVESV MOD A2C: 40.90 mlLVLs A2C: 6.04 cmLVESV MOD A4C: | | 49.88 mlLVLs A4C: 6.67 cmLAESV(A-L): 47.60 mlLAESV Index (A-L): 25.73 ml/m2LAAs | | A2C: 16.22 [id number] A-L A2C: 43.96 mlLALs A2C: 5.08 cmLAAs A4C: 16.75 [id number] | | A-L A4C: 49.15 mlLALs A4C: 4.84 cmRAAs: 13.81 [id number] A-L: 33.83 mlRAESV MOD: | | 33.16 mlRALs: 4.78 cmTAPSE: 2.49 cmAV maxP.63 mmHgAV meanP.44 mmHgAV | | Vmax: 1.18 m/Tara Vmean: 0.90 m/Tara VTI: 25.14 cmAVA Vmax: 3.19 cm2AVA (VTI): | | 2.97 [id number] Vmax: 0.00 cm2/m2AVAI (VTI): 0.00 cm2/m2LVOT maxP.84 mmHgLVOT | | meanP.98 mmHgLVSI Dopp: 40.44 ml/m2LVSV Dopp: 74.81 mlLVOT Vmax: 0.98 | | m/sLVOT Vmean: 0.63 m/sLVOT VTI: 19.34 cmMV A Deacon: 0.50 m/sMV DecT: 167.58 msMV | | E Deacon: 0.53 m/sMV E/A Ratio: 1.04MV PHT: 48.59 msMVA By PHT: 4.52 [id number] e': | | 0.08 m/sSeptal E/e': 6.60Lateral e': 0.11 m/sLateral E/e': 4.84RAP: 5 | | mmHgRVSP: 23.76 mmHgTR maxP.76 mmHgTR Vmax: 2.16 m/s Public Service Officer: | | DHAuthenticated by: [facility] Date/Time: 04-03-2017 19:23:20 IMPRESSION: 1. | | The left ventricle is normal in size, wall thickness and systolic function EF 55-60%.2. | | The right ventricle is normal in size and systolic function.3. No significant valvular | | pathology.4. There is no pericardial effusion. | |MEASUREMENTS | | | |Ao asc: 2.97 cm | |Ao Diam: 3.33 cm | |Ao sinus: 3.22 cm | |Ao st junct: 2.84 cm | |IVC: 1.54 cm | |LA Diam: 3.85 cm | |LA Major: 4.69 cm | |EDV(Teich): 123.49 ml | |IVSd: 0.88 cm | |LVIDd: 5.09 cm | |LVPWd: 0.98 cm | |LVOT Area: 3.86 cm2 | |LVOT Diam: 2.21 cm | |%FS: 31.77 % | |EF(Teich): 59.49 % | |ESV(Teich): 50.01 ml | |LVIDs: 3.47 cm | |SV(Teich): 73.47 ml | |RA Major: 4.62 cm | |RV Major: 6.53 cm | |RVIDd: 2.40 cm | |LVEF MOD A2C: 61.79 % | |SV MOD A2C: 66.16 ml | |LVEF MOD A4C: 51.68 % | |SV MOD A4C: 53.37 ml | |EF Biplane: 55.52 % | |LVEDV MOD BP: 106.08 ml | |LVESV MOD BP: 47.17 ml | |LVEDV MOD A2C: 107.06 ml | |LVLd A2C: 7.57 cm | |LVEDV MOD A4C: 103.25 ml | |LVLd A4C: 7.72 cm | |LVESV MOD A2C: 40.90 ml | |LVLs A2C: 6.04 cm | |LVESV MOD A4C: 49.88 ml | |LVLs A4C: 6.67 cm | |LAESV(A-L): 47.60 ml | |LAESV Index (A-L): 25.73 ml/m2 | |LAAs A2C: 16.22 cm2 | |LAESV A-L A2C: 43.96 ml | |LALs A2C: 5.08 cm | |LAAs A4C: 16.75 cm2 | |LAESV A-L A4C: 49.15 ml | |LALs A4C: 4.84 cm | |RAAs: 13.81 cm2 | |RAESV A-L: 33.83 ml | |RAESV MOD: 33.16 ml | |RALs: 4.78 cm | |TAPSE: 2.49 cm | |AV maxP.63 mmHg | |AV meanP.44 mmHg | |AV Vmax: 1.18 m/s | |AV Vmean: 0.90 m/s | |AV VTI: 25.14 cm | |KAEL Vmax: 3.19 cm2 | |KAEL (VTI): 2.97 cm2 | |AVAI Vmax: 0.00 cm2/m2 | |AVAI (VTI): 0.00 cm2/m2 | |LVOT maxP.84 mmHg | |LVOT meanP.98 mmHg | |LVSI Dopp: 40.44 ml/m2 | |LVSV Dopp: 74.81 ml | |LVOT Vmax: 0.98 m/s | |LVOT Vmean: 0.63 m/s | |LVOT VTI: 19.34 cm | |MV A Deacon: 0.50 m/s | |MV DecT: 167.58 ms | |MV E Deacon: 0.53 m/s | |MV E/A Ratio: 1.04 | |MV PHT: 48.59 ms | |MVA By PHT: 4.52 cm2 | |Septal e': 0.08 m/s | |Septal E/e': 6.60 | |Lateral e': 0.11 m/s | |Lateral E/e': 4.84 | |RAP: 5 mmHg | |RVSP: 23.76 mmHg | |TR maxP.76 mmHg | |TR Vmax: 2.16 m/s | | | |Public Service Officer: ALYSIA | |Authenticated by: Renee Henson | |Report Date/Time: 04-03-2017 19:23:20 | | | |IMPRESSION: | |1. The left ventricle is normal in size, wall thickness and systolic function EF 55-60%. | |2. The right ventricle is normal in size and systolic function. | |3. No significant valvular pathology. | |4. There is no pericardial effusion. | + + documented in this encounter Visit Diagnoses Not on filedocumented in this encounter"
--- OUTSIDE RECORDS SUMMARY | ~2020-03-18 | XMS | Encounter Summary ---
Demographics + + + | Address | [address] | | | [place] [address] | + + + | Home Phone | | + + + | Preferred Language | Unknown | + + + | Marital Status | Unknown | + + + | Voodoo Affiliation | Unknown | + + + | Race | Unknown | + + + | Ethnic Group | Unknown | + + + Author + + + | Author | [facility] | | | and [place] | + + + | Organization | [facility] | | | and [place] | + + + | Address | Unknown | + + + | Phone | Unavailable | + + + Support + + +---------+ + | Name | Relationship | Address | Phone | + + +---------+ + | [place] | ECON | Unknown | | | Corrections | | | | + + +---------+ + Care Team Providers + +------+ + | Care Heat And Frost Insulator Name | Role | Phone | + +------+ + | Marilin MarieP | PCP | | + +------+ + Reason for Referral Diagnostic/Screening (Routine) + +--------+ + + + + | Status | Reason | Specialty | Diagnoses / | Referred By | Referred To | | | | | Procedures | Contact | Contact | + +--------+ + + + + | Authorized | | Radiology | Diagnoses | Krissy | Anastasia Mri | | | | | Paroxysmal | Deandra | [address] | | | | | atrial | MD Clark | [address] | | | | | fibrillation | [address] | [place], [place] | | | | | (HCC) | [place] | [address] | | | | | Procedures | [place] | Phone: | | | | | NM Nuclear | [place], [place] | [phone] | | | | | Stress Test | [address] | Fax: | | | | | (Vasodilator | Phone: | [phone] | | | | | ) | [phone] | | | | | | | Fax: | | | | | | | [phone] | | + +--------+ + + + + Diagnostic/Screening (Routine) + +--------+ + + + + | Status | Reason | Specialty | Diagnoses / | Referred By | Referred To | | | | | Procedures | Contact | Contact | + +--------+ + + + + | Authorized | | Radiology | Diagnoses | Krissy, | [facility] | | | | | Paroxysmal | Deandra | REGIONAL | | | | | atrial | MD Clark | MEDICAL | | | | | fibrillation | [address] | CENTER [address] | | | | | ([facility]) | [address] | [address] | | | | | Procedures | [place] | [place], [place] | | | | | ECHO | [place], [place] | [address] | | | | | Complete | [address] | Phone: | | | | | | Phone: | [phone] | | | | | | [phone] | Fax: | | | | | | Fax: | [phone] | | | | | | [phone] | | + +--------+ + + + + Reason for Visit [...] | Cardiology | Diagnoses | Sixto, | Krissy, | | | Services | | Paroxysmal | MD Renee | Deandra | | | Required | | atrial | [address] | [address] | | | | | fibrillation | [address] | [address] | | | | | ([facility]) | [address] | [address] | | | | | | [place], [place] | [place], [place] | | | | | | [address] | [address] Phone: | | | | | | Phone: | [phone] | | | | | | [phone] | Fax: | | | | | | Fax: | [phone] | | | | | | [phone] | | +--------+ + + + + + Encounter Details +--------+---------+ + + + | Date | Type | Department | Care Team | Description | +--------+---------+ + + + | 01/14/ | Office | [facility] EP | Deandra Rey | Paroxysmal atrial | | 2020 | Visit | CARDIOLOGY [facility] | MD [address] | fibrillation ([facility]) | | | | [address] | [address] | (Primary Dx) | | | | [place], [place] | [place] [address] | | | | | [address] | [phone] | | | | | [phone] | | | +--------+---------+ + + + [...] EF 55-60%, tr MR, tr TR, tr ID, RVSP 24 History reviewed. 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 | | +--------+ + + + + | 04/01/ | Office | Cardiology | Deandra Rey | | | 2019 | Visit | | MD [address] | | | | | | [address] | | | | | | [place] [address] | | | | | | [phone] | | | | | | | | +--------+ + + + + | 07/15/ | Office | Cardiology | Renee Henson, | | | 2019 | Visit | | [address] | | | | | | [place] | | | | | | [address] | | | | | | | | +--------+ + + + + + + +--------+ + + | Name | Type | Priori | Associated Diagnoses | Order Schedule | | | | ty | | | + + +--------+ + + | ECHO Complete | Echocardiog | Routin | Paroxysmal atrial | Expected: | | | garth | e | fibrillation (HCC) | 01/15/2020, Expires: | | | | | | 01/14/2021 | + + +--------+ + + | NM Nuclear Stress | Cardiac | Routin | Paroxysmal atrial | Expected: | | Test (Vasodilator) | Nuclear | e | fibrillation (HCC) | 01/15/2020, Expires: | | | Medicine | | | 01/14/2021 | + + +--------+ + + documented [...] in this encounter Results ECG 12 lead (01/15/2020 9:36 AM PDT) [...] MD | | | | | | ([id number]) on 01/15/2020 | | | | | [...]
--- OUTSIDE RECORDS SUMMARY | ~2020-03-18 | XMS | Encounter Summary ---
Demographics + + + | Address | [address] | | | [place] [address] | + + + | Home Phone | | + + + | Preferred Language | Unknown | + + + | Marital Status | Unknown | + + + | Anabaptism Affiliation | Unknown | + + + | Race | Unknown | + + + | Ethnic Group | Unknown | + + + Author + + + | Author | [facility] | | | and [place] | + + + | Organization | [facility] | | | and [place] | + + + | Address | Unknown | + + + | Phone | Unavailable | + + + Support + + +---------+ + | Name | Relationship | Address | Phone | + + +---------+ + | [place] | ECON | Unknown | | | Corrections | | | | + + +---------+ + Care Team Providers + +------+ + | Care Public Health Policy Analyst Name | Role | Phone | + [...] + + | 02/11/ | Office | [facility] EP | Deandra Rey | Paroxysmal atrial | | 2020 | Visit | CARDIOLOGY [place] | MD [address] | fibrillation (HCC) | | | | [address] | [address] | (Primary Dx) | | | | [place], [place] | [place] [address] | | | | | [address] | [phone] | | | | | [phone] | | | +--------+---------+ + + + [...] with some issues with scheduling with the custodial. He does not believ e he has [...] EF 55-60%, tr MR, tr TR, tr UT, RVSP 24 History reviewed. 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
[~2020-03-18 20:32] MED LIST changes: +METOPROLOL SUCC50 MG PO
--- OUTSIDE RECORDS SUMMARY | 2020-03-18 20:34 | XMS ---
PreManage Notification: PARISH SOUZA Security Education Technician Events No recent Security Events currently on file CRITERIA MET - [facility] - 2 Visits in 30 Days CARE PROVIDERS There are no care providers on record at this time. Bayron has no Care Guidelines for this patient. Claudine VISIT COUNT (12 MO.) 4 [facility] TOTAL 4 NOTE: Visits indicate total known visits. ED/C VISIT TRACKING (12 MO.) 03/18/2020 20:[facility] [place] TYPE: Emergency COMPLAINT: - CHEST PAIN 02/23/2020 20:28 [facility] [place] TYPE: Emergency COMPLAINT: - CHEST PAIN DIAGNOSES: - Essential (primary) hypertension - Other longterm (current) drug therapy - prison (current) use of aspirin - Personal history of nicotine dependence - Paroxysmal atrial fibrillation - Gastro-esophageal reflux disease without esophagitis 10/28/2019 14:03 [facility] [place] TYPE: Emergency COMPLAINT: - CHEST PAIN DIAGNOSES: - intermediate card tender (current) use of aspirin - prison (current) use of anticoagulants - Other longterm (current) drug therapy - Unspecified atrial fibrillation - Personal history of nicotine dependence - Essential (primary) hypertension - Chest pain, unspecified 10/04/2019 06:50 [facility] [place] TYPE: Emergency COMPLAINT: - RAPID HEART RATE DIAGNOSES: - Unspecified atrial fibrillation - Palpitations - Essential (primary) hypertension - prison (current) use of aspirin - Other longterm (current) drug therapy INPATIENT VISIT TRACKING (12 MO.) No inpatient visits to display in this time frame [email or web address]
--- NOTE | 2020-03-18 22:34 | EKG ---
[facility] [address] [facility] [place] [address] Signed Normal sinus rhythm Rightward axis Borderline ECG When compared with ECG of 23-FEB-2020 20:32, No significant change was found Confirmed by LESIA FELIX MD ([id number]) on 03/18/2020 10:34:51 PM Electronically Signed By: LESIA FELIX MD 03/18/20 2234 PATIENT NAME: SARITA SOUZAJayashree BILL Electrocardiogram DATE OF : 77 PHYSICIAN: LESIA FELIX MD REPORT #: [id number] REPORT IS CONFIDENTIAL AND NOT TO BE RELEASED WITHOUT AUTHORIZATION
== END 2020-03-18 22:11 | disposition home or self-care (01) ==
LOC: ED 20:32
DX: R07.9 Chest pain, unspecified (principal); I10 Essential (primary) hypertension; K21.9 Gastro-esophageal reflux disease without esophagitis; I48.91 Unspecified atrial fibrillation; Z87.891 Personal history of nicotine dependence; Z79.82 Long term (current) use of aspirin; Z79.899 Other long term (current) drug therapy
CPT/HCPCS: 71045; 80053; 83735; 84484; 85025; 93005; 93010; 99285-25

== ENCOUNTER 2020-03-20 22:54 | Emergency (ER) | payer OTHER ==
[~2020-03-20] VITALS: Ht 167.6 cm; Wt 79.4 kg
--- OUTSIDE RECORDS SUMMARY | ~2020-03-20 | XMS | Encounter Summary ---
Demographics + + + | Address | [address] | | | [place] [address] | + + + | Home Phone | | + + + | Preferred Language | Unknown | + + + | Marital Status | Unknown | + + + | Advent Affiliation | Unknown | + + + | Race | Unknown | + + + | Ethnic Group | Unknown | + + + Author + + + | Author | [facility] | | | and [place] | + + + | Organization | [facility] | | | and [place] | + + + | Address | Unknown | + + + | Phone | Unavailable | + + + Support + + +---------+ + | Name | Relationship | Address | Phone | + + +---------+ + | [place] | ECON | Unknown | | | Corrections | | | | + + +---------+ + Care Team Providers + +------+ + | Care Photo Checker And Assembler Name | Role | Phone | + +------+ + | Marilin MarieP | PCP | | + +------+ + Reason for Referral Diagnostic/Screening (Routine) +--------+--------+ + + + + | Status | Reason | Specialty | Diagnoses / | Referred By | Referred To | | | | | Procedures | Contact | Contact | +--------+--------+ + + + + | Closed | | Radiology | Diagnoses | Krissy, | [facility] | | | | | Paroxysmal | Gerson | [address] | | | | | atrial | MD Clark | [address] | | | | | fibrillation | [address] | [place], [place] | | | | | (HCC) | [address] | [address] | | | | | Procedures | MANUEL [address] | Phone: | | | | | NM Nuclear | [place], [place] | [phone] | | | | | Stress Test | [id number] | Fax: | | | | | (Vasodilator | Phone: | [phone] | | | | | ) | [phone] | | | | | | | Fax: | | | | | | | [phone] | | +--------+--------+ + + + + Reason for Visit Diagnostic/Screening (Routine) +--------+--------+ + + + + | Status | Reason | Specialty | Diagnoses / | Referred By | Referred To | | | | | Procedures | Contact | Contact | +--------+--------+ + + + + | Closed | | Radiology | Diagnoses | Krissy, | [facility] | | | | | Paroxysmal | Gerson | [address] | | | | | atrial | MD Clark | [address] | | | | | fibrillation | [address] | [place], [place] | | | | | (HCC) | [address] | [address] | | | | | Procedures | MANUEL F | Phone: | | | | | NM Nuclear | [place], [place] | [phone] | | | | | Stress Test | [address] | Fax: | | | | | (Vasodilator | Phone: | [phone] | | | | | ) | [phone] | | | | | | | Fax: | | | | | | | [phone] | | +--------+--------+ + + + + Encounter Details +--------+ + + + + | Date | Type | Department | Care Team | Description | +--------+ + + + + | 03/19/ | Hospital | [facility] | Gerson Rey | Paroxysmal atrial | | 2019 | Encounter | [facility] | [address] | fibrillation (HCC) | | | | NUCLEAR MEDICINE | [address] | | | | | [address] | [place] [address] | | | | | [place], [place] | [phone] | | | | | [address] | | | | | | [phone] | [place], [facility] [place] [facility] | | +--------+ + + + + Social History + +-------+ +--------+------+ | Tobacco Use | Types | Packs/Day | Years | Date | | | | | Used | | + +-------+ +--------+------+ | Former Smoker | | | | | + +-------+ +--------+------+ + +---+---+---+ | Smokeless Tobacco: | | | | | Never Used | | | | + +---+---+---+ + + +---------+ + | Alcohol Use | Drinks/Week | oz/Week | Comments | + + +---------+ + | Not Currently | | | Alcoholic | | | | | Drinks/day: | | | | | moderation- past use | + + +---------+ + + + + | Sex Assigned at | Date Recorded | | | | + + + | Not on file | | + + + documented as of this encounter Medications at Time of Discharge + + + +---------+ + + | Medication | Sig | Dispensed | Refills | Start | End Date | | | | | | Date | | + + + +---------+ + + | aspirin 325 mg EC | Take 1 tablet by | | 0 | 01/15/20 | | | tabletIndications: | mouth Daily. | | | 20 | | | Paroxysmal atrial | | | | | | | fibrillation (HCC) | | | | | | + + + +---------+ + + | cetirizine | Take 10 mg by mouth | | 0 | | | | (ZYRTEC) 10 mg | Daily. | | | | | | tablet | | | | | | + + + +---------+ + + | metoprolol | Take 1 tablet by | 90 | 2 | 12/11/19 | | | succinate | mouth Daily. | tablet | | 20 | | | (TOPROL-XL) 50 mg 24 | | | | | | | hr tablet | | | | | | + + + +---------+ + + | omeprazole | Take 20 mg by mouth | | 0 | | | | (PRILOSEC) 20 mg | every morning | | | | | | capsule | (before breakfast). | | | | | + + + +---------+ + + | propafenone | Take 1.5 tablets by | 90 | 3 | 12/11/19 | | | (RYTHMOL) 300 MG | mouth Daily as | tablet | | 20 | 1 | | tablet | needed (for atrial | | | | | | | fibrillation). | | | | | + + + +---------+ + + | Saline (SODIUM | 104 mLs by Nasal | | 0 | | | | CHLORIDE NA) | route. | | | | | + + + +---------+ + + documented as of this encounter Plan of Treatment +--------+---------+ + + + | Date | Type | Specialty | Care Team | Description | +--------+---------+ + + + | 04/01/ | Office | Cardiology | Gerson Rey | | | 2019 | Visit | | MD [address] | | | | | | [address] | | | | | | [place] [address] | | | | | | [phone] | | | | | | | | +--------+---------+ + + + | 07/15/ | Office | Cardiology | Renee Henson, | | | 2019 | Visit | | MD [address]ON[address] | | | | | | [place] | | | | | | [address] | | | | | | | | +--------+---------+ + + + documented as of this encounter Procedures + +--------+ + + + | Procedure Name | Priori | Date/Time | Associated Diagnosis | Comments | | | ty | | | | + +--------+ + + + | NM NUCLEAR STRESS | Routin | 03/19/2020 | Paroxysmal atrial | Results for this | | TEST (PHARMACOLOGIC | e | 5:44 PM | fibrillation (HCC) | procedure are in the | | - VASODILATOR) | | PDT | | results section. | + +--------+ + + + documented in this encounter Results NM Nuclear Stress Test (Vasodilator) (03/19/2020 5:44 PM PDT) + +--------+ + + + | Component | Value | Ref Range | Performed | Pathologist | | | | | At | Signature | + +--------+ + + + | BASELINE | 54 | bpm | [facility] | | | HEART RATE | | | | | + +--------+ + + + | BASELINE | 116/83 | mmHg | [facility] | | | BLOOD | | | | | | PRESSURE | | | | | + +--------+ + + + | PEAK HEART | 112 | | [facility] | | | RATE | | | | | + +--------+ + + + | PEAK BLOOD | 126/84 | mmHG | [facility] | | | PRESSURE | | | | | + +--------+ + + + | Target HR | 150 | | [facility] | | + +--------+ + + + | Percent HR | 63 | | [facility] | | + +--------+ + + + | Max | 177 | | [facility] | | | Predicted | | | | | | HR | | | | | + +--------+ + + + | LVEF-SPECT | 62 | % | [facility] | | | NUCLEAR | | | | | | STRESS/VIAB | | | | | | ILITY | | | | | + +--------+ + + + | NM stress | 100 | | [facility] | | | end | | | | | | diastolic | | | | | | volume | | | | | + +--------+ + + + | NM stress | 38 | | [facility] | | | end | | | | | | systolic | | | | | | volume | | | | | + +--------+ + + + | NM rest end | 87 | | [facility] | | | diastolic | | | | | | volume | | | | | + +--------+ + + + | NM rest end | 44 | | [facility] | | | systolic | | | | | | volume | | | | | + +--------+ + + + | TID VALUE | 0.96 | | [facility] | | + +--------+ + + + | ST | 0.0 | mm | [facility] | | | Elevation | | | | | | (mm) | | | | | + +--------+ + + + + + | Specimen | + + | | + + + + + | Narrative | Performed At | + + + | 1. Baseline | [facility] | | sinus rhythm with no significant ST or T wave abnormalities2. | | | Uneventful infusion with no ST changes or chest discomfort3. Normal | | | perfusion pattern both at rest and during exercise4. Normal wall | | | motion and wall thickening with ejection fraction of 50% at rest and | | | 62% at the end of infusion5. This is a low risk stress test | | + + + + + | Procedure Note | + + | Sergio Heredia MD - 03/19/2020 5:48 PM PDT 1. Baseline sinus rhythm with no | | significant ST or T wave abnormalities2. Uneventful infusion with no ST changes or chest | | discomfort3. Normal perfusion pattern both at rest and during exercise4. Normal wall | | motion and wall thickening with ejection fraction of 50% at rest and 62% at the end of | | infusion5. This is a low risk stress test | + + + +---------+ + + | Performing | Address | City/State/Zipcode | Phone Number | | Organization | | | | + +---------+ + + | [facility] | | | | + +---------+ + + documented in this encounter Visit Diagnoses + + | Diagnosis | + + | Paroxysmal atrial fibrillation (HCC) Atrial fibrillation | + + documented in this encounter Administered Medications + +--------+ +--------+------+------+ | Medication Order | MAR | Action | Dose | Rate | Site | | | Action | Date | | | | + +--------+ +--------+------+------+ | regadenoson (LEXISCAN) | Given | 03/19/20 | 0.4 mg | | | | injection 0.4 mg 0.4 mg, | | 20 1:41 | | | | | Intravenous, ONCE PRN, stress, | | PM PDT | | | | | Starting [facility] 03/19/20 at 1150, For | | | | | | | 1 dose, Give IV push over 10 | | | | | | | seconds, then follow immediately | | | | | | | with 5 mL saline flush., Nuclear | | | | | | | Medicine | | | | | | + +--------+ +--------+------+------+ +---+---+ | | | +---+---+ + +-------+ + +---+---+ | technetium TC-99M sestamibi | Given | 03/19/20 | 10.5 | | | | (CARDIOLITE) injection 10.5 | | 20 11:51 | millicur | | | | millicurie 10.5 millicurie, | | AM PDT | ies | | | | Intravenous, ONCE PRN, Other, | | | | | | | Starting [facility] 03/19/20 at 1151, For | | | | | | | 1 dose, Nuclear Medicine | | | | | | + +-------+ + +---+---+ +---+---+ | | | +---+---+ + +-------+ + +---+---+ | technetium TC-99M sestamibi | Given | 03/19/20 | 30.9 | | | | (CARDIOLITE) injection 30.9 | | 20 1:41 | millicur | | | | millicurie 30.9 millicurie, | | PM PDT | ies | | | | Intravenous, ONCE PRN, Other, | | | | | | | Starting [facility] 03/19/20 at 1151, For | | | | | | | 1 dose, Nuclear Medicine | | | | | | + +-------+ + +---+---+ +---+---+ | | | +---+---+ documented in this encounter"
--- OUTSIDE RECORDS SUMMARY | ~2020-03-20 | XMS | Encounter Summary ---
Demographics + + + | Address | [address] | | | [place] [address] | + + + | Home Phone | | + + + | Preferred Language | Unknown | + + + | Marital Status | Unknown | + + + | Mormon Affiliation | Unknown | + + + | Race | Unknown | + + + | Ethnic Group | Unknown | + + + Author + + + | Author | [facility] | | | and [place] | + + + | Organization | [facility] | | | and [place] | + + + | Address | Unknown | + + + | Phone | Unavailable | + + + Support + + +---------+ + | Name | Relationship | Address | Phone | + + +---------+ + | [place] | ECON | Unknown | | | Corrections | | | | + + +---------+ + Care Team Providers + +------+ + | Care System Designer Name | Role | Phone | + +------+ + | Marilin Marie | PCP | | + +------+ + Reason for Visit + + + | Reason | Comments | + + + | Follow-up | | + + + Encounter Details +--------+---------+ + + + | Date | Type | Department | Care Team | Description | +--------+---------+ + + + | 02/11/ | Office | [facility] | Deandra Rey | Paroxysmal atrial | | 2020 | Visit | CARDIOLOGY [place] | [address] | fibrillation (HCC) | | | | [address] | [address] | (Primary Dx) | | | | [place], [place] | [place] [address] | | | | | [address] | [phone] | | | | | [phone] | | | +--------+---------+ + + + [...] + documented in this encounter Progress Notes Deandra Rey MD - 02/12/2020 8:30 AM PDTFormatting of this note might be dif ferent from the original. Subjective: Referring MD: No ref. provider found Chief Complaint Patient presents with Follow-up HPI: This is a 44 y.o. male who presents today for follow-up of atrial fibrillation. Mr. Jordyn mccormack unfortunately did not have his echocardiogram and stress test performed since his last visit. This had to do with [facility] He does not believ e he has had any recurrent atrial fibrillation since his last visit. He continues to do his usual activity without any new limitations or symptoms. He denies any current chest pain, shortness of breath, dizziness, lightheadedness, or recent syncope. Past Medical History: Diagnosis Date Atrial fibrillation (HCC) CVN 10/31 - propafenone PRN Past Surgical History: Procedure Laterality Date LEG SURGERY Right TRANSTHORACIC ECHOCARDIOGRAM 03/2017 EF 55-60%, tr MR, tr TR, tr [place], RVSP 24 History reviewed. No pertinent family history. Social History Socioeconomic History Marital status: Unknown Spouse name: Not on file Number of children: Not on file Years of education: Not on file Highest education level: Not on file Tobacco Use Smoking status: Former Smoker Smokeless tobacco: Never Used Substance and Sexual Activity Alcohol use: Not Currently Comment: Alcoholic Drinks/day: moderation- past use Drug use: Not Currently Review of Systems: Ten system review negative unless noted in HPI. Current Outpatient Medications Medication Sig Dispense Refill aspirin 325 mg EC tablet Take 1 tablet by mouth Daily. cetirizine (ZYRTEC) 10 mg tablet Take 10 mg by mouth Daily. metoprolol succinate (TOPROL-XL) 50 mg 24 hr tablet Take 1 tablet by mouth Daily. 90 ta blet 2 omeprazole (PRILOSEC) 20 mg capsule Take 20 mg by mouth every morning (before breakfast ). propafenone (RYTHMOL) 300 MG tablet Take 1.5 tablets by mouth Daily as needed (for atri al fibrillation). 90 tablet 3 Saline (SODIUM CHLORIDE NA) 104 mLs by Nasal route. No current facility-administered medications for this visit. Allergies Allergen Reactions Ibuprofen Other (See Comments) Urinating and couging blood. Generic Ibuprofen Objective: Vitals: 02/12/20 0830 BP: 135/82 Pulse: 71 Weight: 77.6 kg (171 lb) Height: 1.676 m (5' 6") Body mass index is 27.6 kg/m. Exam: General: Patient is alert, pleasant, cooperative, and in no acute distress. Eyes: Sclerae anicteric. Ears: External ears normal. Nose: External nose normal. Oral exam: No oral lesions noted. Neck: Trachea midline. No thyromegaly. No elevation of jugular venous pressure. No aiken tid bruits. Lungs: Clear to auscultation bilaterally. No wheezes, rales, or rhonchi. Heart: Regular rate and rhythm. Normal S1/S2. No murmurs, gallops, rubs. Abdomen: Bowel sounds present. Soft, nondistended. No masses or hepatosplenomegaly noted . No significant tenderness noted. Extremities: No clubbing or cyanosis noted. No lower extremity edema noted. Pulses: Intact bilateral radial and pedal pulses. Musculoskeletal: No obvious arthritic change noted of the knees. Skin: Warm and dry. Psychiatric: Patient is alert and oriented to person, place, and day. Mood and affect nor mal. Neurological: Patient is intact to light touch in the upper and lower extremities bilateral ly. Review of studies: ECG: Normal sinus rhythm at 70 bpm, normal, no significant change from January 2020 Impression/Plan: Sanjay was seen today for follow-up. Diagnoses and all orders for this visit: Paroxysmal atrial fibrillation (HCC) - ECG 12 lead 1) Atrial fibrillation - Mr. Sweeney has a history of symptomatic, paroxysmal atrial fibrilla tion. His last significant episode was in October 2019 which required cardioversion in the local emergency department. He has been using Rythmol on an as-needed basis. An echocardi ogram and stress test were recommended to allow initiation of antiarrhythmic medication prio r to pulmonary vein isolation in the near future. Unfortunately, he did not have the testin g performed and it was reordered at this time. We will likely plan to start flecainide and anticoagulation prior to proceeding with pulmonary vein isolation in the near future. He co ntinues on Toprol-XL 50 mg daily. He continues on aspirin 325 mg daily given minimal risk f actors. This encounter was dictated with voice recognition software and may contain inadvertent rec ognition errors. documented in this encounter Plan of Treatment +--------+---------+ + + + | Date | Type | Specialty | Care Team | Description | +--------+---------+ + + + | 04/01/ | Office | Cardiology | Deandra Rey | | 2019 | Visit | | MD Nino Rodas | | | | | | [address] | | | | | | [place] [address] | | | | | | [phone] | | | | | | | | +--------+---------+ + + + | 07/15/ | Office | Cardiology | Renee Henson, | | | 2019 | Visit | | MD Nino JONES | | | | | | [place] | | | | | | [address] | | | | | | | [...] + + documented in this encounter Results ECG 12 lead (02/12/2020 8:27 AM PDT) + + + + + + | [...] MD | | | | | | ([id number]) on 02/17/2020 | | | | | [...]
--- OUTSIDE RECORDS SUMMARY | ~2020-03-20 | XMS | Encounter Summary ---
Demographics + + + | Address | [address] | | | [place] [address] | + + + | Home Phone | | + + + | Preferred Language | Unknown | + + + | Marital Status | Unknown | + + + | Confucianist Affiliation | Unknown | + + + | Race | Unknown | + + + | Ethnic Group | Unknown | + + + Author + + + | Author | [facility] | | | and [place] | + + + | Organization | [facility] | | | and [place] | + + + | Address | Unknown | + + + | Phone | Unavailable | + + + Support + + +---------+ + | Name | Relationship | Address | Phone | + + +---------+ + | [place] | ECON | Unknown | | | Corrections | | | | + + +---------+ + Care Team Providers + +------+ + | Care Charge Poster Name | Role | Phone | + [...] | Radiology | Diagnoses | Krissy, | [facility] | | | | | Paroxysmal | Gerson | REGIONAL | | | | | atrial | MD Clark | MEDICAL | | | | | fibrillation | [address] | [address] | | | | | ([facility]) | [address] | [address] | | | | | Procedures | [address] | [place], [place] | | | | | ECHO | [place], [place] | [address] | | | | | Complete | [address] | Phone: | | | | | | Phone: | [phone] | | | | | | [phone] | Fax: | | | | | | Fax: | [phone] | | | | | | [phone] | | +--------+--------+ + + + + Reason for Visit Diagnostic/Screening (Routine) +--------+--------+ + + + + | Status | Reason | Specialty | Diagnoses / | Referred By | Referred To | | | | | Procedures | Contact | Contact | +--------+--------+ + + + + | Closed | | Radiology | Diagnoses | Krissy, | [facility] | | | | | Paroxysmal | Gerson | REGIONAL | | | | | atrial | MD Clark | MEDICAL | | | | | fibrillation | [address] | [address] | | | | | ([facility]) | [address] | [address] | | | | | Procedures | MANUEL F | [place], [place] | | | | | ECHO | [place] | [address] | | | | | Complete | [address] | Phone: | | | | | | Phone: | [phone] | | | | | | [phone] | Fax: | | | | | | Fax: | [phone] | | | | | | [phone] | | +--------+--------+ + + + + Encounter Details +--------+ + + + + | Date | Type | Department | Care Team | Description | +--------+ + + + + | 03/19/ | Hospital | [facility] | Gerson Rey | Paroxysmal atrial | | 2020 | Encounter | [facility] | MD [address] | fibrillation (HCC) | | | | ECHOCARDIOGRAPHY | [address] | | | | | [address] | [place] [address] | | | | | [place], [place] | [phone] | | | | | [address] | | | | | | [phone] | | | +--------+ + + + [...] [address] | | | | | | [place] [address] | | | | | | [phone] | | | | | | | | +--------+---------+ + + + | 07/15/ | Office | Cardiology | Ford Hensonelenita, | | | 2019 | Visit | | [address] | | | | | | [place] | | | | | | [address] | | | | | | | | +--------+---------+ + + + documented as of this encounter Procedures + +--------+ + + + | Procedure Name | Priori | Date/Time | Associated Diagnosis | Comments | | | ty | | | | + +--------+ + + + | ECHO COMPLETE | Routin | 03/19/2020 | Paroxysmal atrial | Results for this | | | e | 11:59 AM | fibrillation (HCC) | procedure are in the | | | | PDT | | results section. | + +--------+ + + + documented in this encounter Results ECHO Complete (03/19/2020 11:59 AM PDT) + +--------+ + + + | Component | Value | Ref Range | Performed | Pathologist | | | | | At | Signature | + +--------+ + + + | LVEF-TTE | 55 | % | [facility] | | | TRANSTHORAC | | | | | | IC ECHO | | | | | + +--------+ + + + | Inferior | 1.49 | cm | [facility] | | | Vena Cava | | | | | | Diameter at | | | | | | Expiration | | | | | + +--------+ + + + | RA PRESSURE | 3 | mmHg | [facility] | | + +--------+ + + + | LVIDd | 5.27 | cm | [facility] | | + +--------+ + + + | FS | 28 | % | [facility] | | + +--------+ + + + | LA volume | 45.96 | mL | [facility] | | + +--------+ + + + | Ascending | 3.48 | cm | [facility] | | | aorta | | | | | + +--------+ + + + | AV mean | 2.5 | mmHg | [facility] | | | gradient | | | | | + +--------+ + + + | Aortic | 3.56 | cm2 | [facility] | | | Valve Area | | | | | | by | | | | | | Continuity | | | | | | VTI | | | | | + +--------+ + + + | PV peak | 2.18 | mmHg | [facility] | | | gradient | | | | | + +--------+ + + + | LVOT | 2.39 | cm | [facility] | | | diameter | | | | | + +--------+ + + + | LVOT peak | 83.37 | cm/s | [facility] | | | megan | | | | | + +--------+ + + + | LVOT peak | 17.34 | cm | [facility] | | | VTI | | | | | + +--------+ + + + | AV peak megan | 104.23 | cm/s | [facility] | | + +--------+ + + + | AV VTI | 21.85 | cm | [facility] | | + +--------+ + + + | AV peak | 4.35 | mmHg | [facility] | | | gradient | | | | | + +--------+ + + + | PV mean | 1.2 | mmHg | [facility] | | | gradient | | | | | + +--------+ + + + | LA Volume | 25 | mL/m2 | [facility] | | | Index | | | | | + +--------+ + + + | AV LVOT | 2.78 | mmHg | [facility] | | | Peak | | | | | | Gradient | | | | | + +--------+ + + + | AV LVOT | 1.46 | mmHg | [facility] | | | Mean | | | | | | Gradient | | | | | + +--------+ + + + | PI Peak | 73.75 | cm/s | [facility] | | | Velocity | | | | | + +--------+ + + + | LV | 7.68 | cm | [facility] | | | Diastolic | | | | | | Length 4C | | | | | + +--------+ + + + | RV | 3.21 | cm | [facility] | | | Diastolic | | | | | | Basal | | | | | | Diameter | | | | | + +--------+ + + + | LV | 55 | % | [facility] | | | Johnson's | | | | | | Biplane EF | | | | | + +--------+ + + + | LV ED | 80.09 | ml | [facility] | | | Volume | | | | | | (Johnson's) | | | | | + +--------+ + + + | LV ED | 43 | ml/m2 | [facility] | | | Volume | | | | | | Index | | | | | + +--------+ + + + | LV ES | 36.44 | ml | [facility] | | | Volume | | | | | + +--------+ + + + | LVOT Mean | 56.32 | cm/s | [facility] | | | Velocity | | | | | + +--------+ + + + | MV | 202.7 | msec | [facility] | | | Deceleratio | | | | | | n Time | | | | | + +--------+ + + + | MV E/A | 0.96 | | [facility] | | | Ratio | | | | | + +--------+ + + + | MV Peak | 52.47 | cm/s | [facility] | | | A-Wave | | | | | + +--------+ + + + | MV Peak | 50.2 | cm/s | [facility] | | | E-Wave | | | | | + +--------+ + + + | PV Mean | 52.11 | cm/s | [facility] | | | Velocity | | | | | + +--------+ + + + | AV Mean | 75.18 | cm/s | [facility] | | | Velocity | | | | | + +--------+ + + + | LA Area | 16.52 | cm2 | [facility] | | + +--------+ + + + | LA Major | 0.2185 | cm | [facility] | | + +--------+ + + + | LV ES | 19 | ml/m2 | [facility] | | | Volume | | | | | | Index | | | | | + +--------+ + + + | Vitals | 70 | | [facility] | | | Heart Rate | | | | | | Rest | | | | | + +--------+ + + + | Vitals | 168.0 | | [facility] | | | Height | | | | | + +--------+ + + + | Vitals | 78.00 | | [facility] | | | Weight | | | | | + +--------+ + + + | IVS | 1 | cm | [facility] | | | Diastolic | | | | | | Thickness | | | | | | MM | | | | | + +--------+ + + + | LVPW | 1.14 | cm | [facility] | | | Diastolic | | | | | | Thickness | | | | | | MM | | | | | + +--------+ + + + | IVS | 1.34 | cm | [facility] | | | Systolic | | | | | | Thickness | | | | | | MM | | | | | + +--------+ + + + | LV Systolic | 3.81 | cm | [facility] | | | Diameter | | | | | | MM | | | | | + +--------+ + + + | LVPW | 1.44 | cm | [facility] | | | Systolic | | | | | | Thickness | | | | | | MM | | | | | + +--------+ + + + | TAPSE | 1.91 | cm | [facility] | | + +--------+ + + + + + | Specimen | + + | | + + + + + | Narrative | Performed At | + + + | Normal left | [facility] | | ventricular size, wall thickness and systolic function EF 55 to | | | 60%.Normal right ventricular size and function.Mild mitral | | | regurgitation with normal left atrial size.Inadequate tricuspid valve | | | Doppler signal to assess pulmonary pressures.No pericardial effusion. | | |No pericardial effusion. | | + + + + +---------+ [...] fibrillation | + + documented in this encounter"
--- OUTSIDE RECORDS SUMMARY | ~2020-03-20 | XMS | Clinical Summary ---
Demographics + + + | Address | [address] | | | [place] [address] | + + + | Home Phone | | + + + | Preferred Language | Unknown | + + + | Marital Status | Unknown | + + + | Orthodox Affiliation | Unknown | + + + | Race | Unknown | + + + | Ethnic Group | Unknown | + + + Author + + + | Author | [facility] | | | and [place] | + + + | Organization | [facility] | | | and [place] | + + + | Address | Unknown | + + + | Phone | Unavailable | + + + Support + + +---------+ + | Name | Relationship | Address | Phone | + + +---------+ + | [place] | ECON | Unknown | | | Corrections | | | | + + +---------+ + Care Team Providers + +------+ + | Care Creative Art Director Name | Role | Phone | + [...] | +--------+ + + + + | 07/09/ | Hospital | Radiology | Deandra Rey | Paroxysmal atrial | | 2020 | Encounter | | MD Clark | fibrillation (HCC) | | | | | Imaging, [facility] | | +--------+ + + + + | 03/19/ | Hospital | Radiology | Deandra Rey | Paroxysmal atrial | | 2019 | Encounter | | MD Clark | fibrillation (HCC) | +--------+ + + + + | 02/11/ | Office | Cardiology | Deandra Rey [...] Dx) | +--------+ + + + + from [...] + + + + Plan of Treatment +--------+---------+ + + + | Date | Type | Specialty | Care Team | Description | +--------+---------+ + + + | 04/01/ | Office | Cardiology | Deandra Rey | | | 2019 | Visit | | MD Clark [address] | | | | | | [address] | | | | | | [place] [address] | | | | | | [phone] | | | | | | | | +--------+---------+ + + + | 07/15/ | Office | Cardiology | Renee Henson, | | | 2019 | Visit | | MD [address] | | | | | | [place] [facility] [place] | | | | | | [address] | | | | | | | | +--------+---------+ + + + + + +-------+ + [...] + + from Last 3 Months Results NM Nuclear Stress Test (Vasodilator) (03/19/2020 [...] | | | + +---------+ + + ECHO Complete (03/19/2020 11:59 AM PDT) + [...] | | | + +---------+ + + ECG 12 lead (02/12/2020 8:27 AM PDT)Only [...] INTERPRETAT | Please refer to | | [facility] | | | ION TEXT | Providers office visit | | | | | | note for Providers | | | | | | Interpretation.Confirmed | | | | | | by DEANDRA REY MD | | | | | | ([id number]) on 02/17/2020 | | | | | [...] | | | + +---------+ + + from Last 3 Months Insurance [...] +--------+-------+---------+--------+ | DEPARTMENT OF | CORRCT | [id number] | | | | Indemn | | [...] | + +--------+ +--------+ + + | [employer] | Corpor | Employer | 09/11/ | | [address] | | [place] | ate | | 1900 | [phone] | [address], | | | | | | [address] (Home) | [place] [address] | | | | | | [phone] | | | | | | | 0 (Work) | | + +--------+ +--------+ + + Advance Directives + + + + + | Type | Date Recorded | Patient | Explanation | | | | Real Estate Officer | | + + + + + | Power of | | | | | Social Media Intern | | | | + + + + + | Advance | | | | | Directive | | | | + + + + +
--- OUTSIDE RECORDS SUMMARY | ~2020-03-20 | XMS | Encounter Summary ---
Demographics + + + | Address | [address] | | | [place] [address] | + + + | Home Phone | | + + + | Preferred Language | Unknown | + + + | Marital Status | Unknown | + + + | Evangelical Affiliation | Unknown | + + + | Race | Unknown | + + + | Ethnic Group | Unknown | + + + Author + + + | Author | [facility] | | | and [place] | + + + | Organization | [facility] | | | and [place] | + + + | Address | Unknown | + + + | Phone | Unavailable | + + + Support + + +---------+ + | Name | Relationship | Address | Phone | + + +---------+ + | [place] | ECON | Unknown | | | Corrections | | | | + + +---------+ + Care Team Providers + +------+ + | Care Zig Zag Spring Machine Operator Name | Role | Phone | + [...] | | | | | Paroxysmal | Deandra | [address] | | | | | atrial | MD Clark | [address] | | | | | fibrillation | [address] | [place], [place] | | | | | ([facility]) | [address] | [address] | | | | | Procedures | [address] | Phone: | | | | | NM Nuclear | [place], [place] | [phone] | | | | | Stress Test | [address] | Fax: | | | | | (Vasodilator | Phone: | [phone] | | | | | ) | [phone] | | | | | | | Fax: | | | | | | | [phone] | | +--------+--------+ + + + + Diagnostic/Screening (Routine) +--------+--------+ + + + + | Status | Reason | Specialty | Diagnoses / | Referred By | Referred To | | | | | Procedures | Contact | Contact | +--------+--------+ + + + + | Closed | | Radiology | Diagnoses | Krissy, | [facility] | | | | | Paroxysmal | Deandra | REGIONAL | | | | | atrial | MD Clark | MEDICAL | | | | | fibrillation | [address] | [address] | | | | | ([facility]) | [address] | [address] | | | | | Procedures | [address] | [place], [place] | | | | | ECHO | [place], [place] | [address] | | | | | Complete | [address] | Phone: | | | | | | Phone: | [phone] | | | | | | [phone] | Fax: | | | | | | Fax: | [phone] | | | | | | [phone] | | +--------+--------+ + + + + Reason for Visit + + + | Reason | Comments | + + + | Consultation | | + + + Evaluate & Treat (Routine) +--------+ + + + + + | Status | Reason | Specialty | Diagnoses / | Referred By | Referred To | | | | | Procedures | Contact | Contact | +--------+ + + + + + | Closed | Specialty | Cardiology | Diagnoses | Alsamara, | Krissy, | | | Services | | Paroxysmal | MD Renee | Deandra | | | Required | | atrial | [address] | MD Clark | | | | | fibrillation | [address] | [address] | | | | | ([facility]) | [address] | [address] | | | | | | [place], [place] | [place], [place] | | | | | | [address] | [address] Phone: | | | | | | Phone: | [phone] | | | | | | [phone] | Fax: | | | | | | Fax: | [phone] | | | | | | [phone] | | +--------+ + + + + + Encounter Details +--------+---------+ + + + | Date | Type | Department | Care Team | Description | +--------+---------+ + + + | 01/14/ | Office | [facility] EP | Deandra Rey | Paroxysmal atrial | | 2020 | Visit | CARDIOLOGY [place] | MD Clark [address] | fibrillation ([facility]) | | | | [address] | [address] | (Primary Dx) | | | | [place], [place] | [place] [address] | | | | | [address] | [phone] | | | | | [phone] | | | +--------+---------+ + + + [...] + + + | Blood Pressure | 135/84 | 01/15/2020 9:40 AM | | | | | PDT | | + + + + + | Pulse | 66 | 01/15/2020 9:40 AM | | | | | PDT | | + + + + + | Temperature | - | - | | + + + + + | Respiratory Rate | - | - | | + + + + + | Oxygen Saturation | 97% | 01/15/2020 9:40 AM | | | | | PDT | | + + + + + | Inhaled Oxygen | - | - | | | Concentration | | | | + + + + + | Weight | 78.4 kg (172 lb 14.4 | 01/15/2020 9:40 AM | | | | oz) | PDT | | + + + + + | Height | 167.6 cm (5' 6") | 01/15/2020 9:40 AM | | | | | PDT | | + + + + + | Body Mass Index | 27.91 | 01/15/2020 9:40 AM | | | | | PDT | | + + + + + documented in this encounter Progress Notes Deandra Rey MD - 01/15/2020 9:30 AM PDTFormatting of this note might be dif ferent from the original. Subjective: Referring MD: Renee Henson MD Chief Complaint Patient presents with Consultation HPI: This is a 44 y.o. male who presents today for an initial evaluation of atrial fibrilla tion. Mr. Sweeney reports he was diagnosed with atrial fibrillation around 2007. He has had multiple episodes over the past several years the last of which required cardioversion in an emergency department in October 2019. He was seen by cardiology and referred to electroph ysiology to consider further treatment options for his symptomatic, paroxysmal atrial fibril lation. He was briefly on warfarin in the past. He denies any current chest pain, shortnes s of breath, dizziness, lightheadedness, palpitations, or recent syncope. Past Medical History: Diagnosis Date Atrial fibrillation (HCC) CVN 2/20 - propafenone PRN Past Surgical History: Procedure Laterality Date LEG SURGERY Right TRANSTHORACIC ECHOCARDIOGRAM 03/2017 EF 55-60%, tr MR, tr TR, tr CA, RVSP 24 History reviewed. No pertinent family [...] and couging blood. Generic Ibuprofen Objective: Vitals: 01/15/20 0940 BP: 135/84 Pulse: 66 Weight: 78.4 kg (172 lb 14.4 oz) Height: 1.676 m (5' 6") Body mass index is 27.91 kg/m. Exam: General: Patient is alert, pleasant, [...] of studies: ECG: Normal sinus rhythm at 64 bpm, no previous in the office for comparison Impression/Plan: Sanjay was seen today for consultation. Diagnoses and all orders for this visit: Paroxysmal atrial fibrillation (HCC) - ECG 12 lead - ECHO Complete; Future - NM Nuclear Stress Test (Vasodilator); Future - aspirin 325 mg EC tablet; Take 1 tablet by mouth Daily. 1) Atrial fibrillation - Mr. Sweeney has a history of symptomatic, paroxysmal atrial fibrilla tion. His last significant episode was in October 2019 which required cardioversion in the local emergency department. He has been using Rythmol on an as-needed basis. We discussed treatment options including regular antiarrhythmic medication and pulmonary vein isolation. He ideally would like to proceed with pulmonary vein isolation in the near future. I have recommended an echocardiogram and pharmacologic stress test to exclude any structural heart defects or perfusion abnormalities. We will then likely start flecainide and anticoagulati on prior to proceeding with pulmonary vein isolation in the near future. He will follow-up after the tests to plan for the procedure. He will continue on Toprol-XL 50 mg daily. He w ill increase aspirin to 325 mg daily. This encounter was dictated with voice recognition [...] | | | | | [place] [address] | | | | | | [phone] | | | | | | | | +--------+---------+ + + + | 07/15/ | Office | Cardiology | Renee Henson, | | | 2019 | Visit | | MD [address] | | | | | | [place] | | | | | | [address] | | | | | | | [...] + +---------+ + + ECG 12 lead (01/15/2020 9:36 AM PDT) + + + + + + | Component | Value | Ref Range | Performed | Pathologist | | | | | At | Signature | + + + + + + | VENTRICULAR | 64 | BPM | [facility] | | | RATE EKG | | | | | + + + + + + | ATRIAL RATE | 64 | BPM | [facility] | | + + + + + + | P-R | 156 | ms | [facility] | | | INTERVAL | | | | | + + + + + + | QRS | 110 | ms | [facility] | | | DURATION | | | | | + + + + + + | Q-T | 396 | ms | [facility] | | | INTERVAL | | | | | + + + + + + | Q-T | 408 | ms | [facility] | | | INTERVAL | | | | | | (CORRECTED) | | | | | + + + + + + | P WAVE AXIS | 66 | degrees | [facility] | | + + + + + + | QRS AXIS | 81 | degrees | [facility] | | + + + + + + | T AXIS | 72 | degrees | [facility] | | [...] MD | | | | | | ([id number]) on 01/15/2020 | | | | | | 1:48:22 PM | | | | + + + [...]
--- OUTSIDE RECORDS SUMMARY | ~2020-03-20 | XMS | Encounter Summary ---
Demographics + + + | Address | [address] | | | [place] [address] | + + + | Home Phone | | + + + | Preferred Language | Unknown | + + + | Marital Status | Unknown | + + + | Druze Affiliation | Unknown | + + + | Race | Unknown | + + + | Ethnic Group | Unknown | + + + Author + + + | Author | [facility] | | | and [place] | + + + | Organization | [facility] | | | and [place] | + + + | Address | Unknown | + + + | Phone | Unavailable | + + + Support + + +---------+ + | Name | Relationship | Address | Phone | + + +---------+ + | [place] | ECON | Unknown | | | Corrections | | | | + + +---------+ + Care Team Providers + +------+ + | Care Choral Director Name | Role | Phone | [...] [address] | | | | | ([facility]) | [address] | [address] | | | | | | [facility] [place] | [place] | | | | | | [address] | [address] Phone: | | | | | | Phone: | [phone] | | | | | | [phone] | Fax: | | | | | | Fax: | [phone] | | | | | | [phone] | | +--------+ + + + + [...] [address] | | | | | ([facility]) | [address] | [place], [place] | | | | | Dizziness | [place], | [address] Phone: | | | | | and | [place] | [phone] | | | | | giddiness | [address] | Fax: | | | | | Procedures | Phone: | [phone] | | | | | Consult | [phone] | | | | | | | Fax: | | | | | | | [phone] | | +--------+--------+ + + + + Encounter Details +--------+---------+ + + + | Date | Type | Department | Care Team | Description | +--------+---------+ + + + | 12/10/ | Office | [facility] | Renee Pollard, | Paroxysmal atrial | | 2020 | Visit | CARDIOLOGY [place] | [address] | fibrillation ([facility]) | | | | [address] | [place], [place] | (Primary Dx) | | | | [address] | [address] | | | | | [place] | | | | | | [address] | | | | | | [phone] | | | +--------+---------+ + + + [...] with it. Recently was ev aluated at [facility] twice in September and again in October, [...] Normal sinus rhythm, right axis. 10/28/2019 From [facility] reviewed showed atrial fibrillation with a heart [...] | Cardiology | Gerson Rey | | 2019 | Visit | | MD Nino Rodas | | | | | | [address] | | | | | | [place] [address] | | | | | | [phone] | | | | | | | | +--------+---------+ + + + | 07/15/ | Office | Cardiology | Renee Pollard, | | | 2019 | Visit | | MD [address] | | | | | | [place] | | | | | | [id number] | | | | | | | | +--------+---------+ + + + + + +--------+ + + | Name | Type | Priori | Associated Diagnoses | Order Schedule | | | | ty | | | + + +--------+ + + | Ambulatory referral | Outpatient | Routin | Paroxysmal atrial | Ordered: 12/11/2019 | | to [facility] | Referral | e | [...]
--- OUTSIDE RECORDS SUMMARY | ~2020-03-20 | XMS | Encounter Summary ---
Demographics + + + | Address | [address] | | | [place] [address] | + + + | Home Phone | | + + + | Preferred Language | Unknown | + + + | Marital Status | Unknown | + + + | Anglican Affiliation | Unknown | + + + | Race | Unknown | + + + | Ethnic Group | Unknown | + + + Author + + + | Author | [facility] | | | and [place] | + + + | Organization | [facility] | | | and [place] | + + + | Address | Unknown | + + + | Phone | Unavailable | + + + Support + + +---------+ + | Name | Relationship | Address | Phone | + + +---------+ + | [place] | ECON | Unknown | | | Corrections | | | | + + +---------+ + Care Team Providers + +------+ + | Care Corporate Counselor Name | Role | Phone | + [...] | | | | [place] | [address] | | | | | [address] | | | | | | [phone] | | | +--------+ + + + [...] | | | | | | [place] [address] | | | | | | [phone] | | | | | | | | +--------+---------+ + + + | 07/15/ | Office | Cardiology | Renee Henson, | | | 2019 | Visit | | MD Nino JONES | | | | | | [place] | | | | | | [address] | | | | | | | [...] TR maxP.76 mmHg TR Vmax: 2.16 m/s [employer] Senior [employer]: ALYSIA | | | Authenticated by: Renee [facility] Report Date/Time: 04-03-2017 | | | 19:23:20 | | + + + + + | Procedure Note | + + | Selwyn, Rad Conversion - 05/02/2019 8:01 PM PDT Patient Name: Estrellita Sweeney of | | : 1975 Performing Physician: Renee | | Kiannapledger INDICATIONS------ | | -----Paroxysmal A-fib CONCLUSIONS 1. [...] | 5.09 cmLVPWd: 0.98 cmLVOT Area: 3.86 [id number] Diam: 2.21 cm%FS: 31.77 %EF(Teich): | | [...] (A-L): 25.73 ml/m2LAAs | | A2C: 16.22 [id number] A-L A2C: 43.96 mlLALs A2C: 5.08 cmLAAs A4C: 16.75 aw4ZSNDC | | A-L A4C: 49.15 mlLALs A4C: 4.84 cmRAAs: 13.81 il5ZEQHF A-L: 33.83 mlRAESV MOD: | | 33.16 mlRALs: 4.78 cmTAPSE: 2.49 cmAV maxP.63 mmHgAV meanP.44 mmHgAV | | Vmax: 1.18 m/Tara Vmean: 0.90 m/Tara VTI: 25.14 cmAVA Vmax: 3.19 cm2AVA (VTI): | | 2.97 [id number] Vmax: 0.00 cm2/m2AVAI (VTI): 0.00 cm2/m2LVOT maxP.84 mmHgLVOT | | meanP.98 mmHgLVSI Dopp: 40.44 ml/m2LVSV Dopp: 74.81 mlLVOT Vmax: 0.98 | | m/sLVOT Vmean: 0.63 m/sLVOT VTI: 19.34 cmMV A Deacon: 0.50 m/sMV DecT: 167.58 msMV | | E Deacon: 0.53 m/sMV E/A Ratio: 1.04MV PHT: 48.59 msMVA By PHT: 4.52 kb2Ewsujg e': | | 0.08 m/sSeptal E/e': 6.60Lateral e': 0.11 m/sLateral E/e': 4.84RAP: 5 | | mmHgRVSP: 23.76 mmHgTR maxP.76 mmHgTR Vmax: 2.16 m/s [employer]: | | DEREKuthenticated by: Renee HutchisonJessicaort Date/Time: 04-03-2017 19:23:20 IMPRESSION: 1. | | [...] |TR Vmax: 2.16 m/s | | | |[employer]: ALYSIA | |Authenticated by: Renee Henson [...]
--- OUTSIDE RECORDS SUMMARY | ~2020-03-20 | XMS | Encounter Summary ---
Demographics + + + | Address | [address] | | | [place] [address] | + + + | Home Phone | | + + + | Preferred Language | Unknown | + + + | Marital Status | Unknown | + + + | Oriental Orthodox Affiliation | Unknown | + + + | Race | Unknown | + + + | Ethnic Group | Unknown | + + + Author + + + | Author | [facility] | | | and [place] | + + + | Organization | [facility] | | | and [place] | + + + | Address | Unknown | + + + | Phone | Unavailable | + + + Support + + +---------+ + | Name | Relationship | Address | Phone | + + +---------+ + | [place] | ECON | Unknown | | | Corrections | | | | + + +---------+ + Care Team Providers + +------+ + | Care Offender Employment Specialist Name | Role | Phone | + [...] + + | 12/17/ | Telephone | [facility] | Renee Henson, | Medication Question | | 2019 | | CARDIOLOGY [place]O | [address] | (Propafenone) | | | | [address] | [place], [place] | | | | | [address] | [address] | | | | | [place] | | | | | | [address] | | | | | | [phone] | | | +--------+ + + + [...] Miscellaneous Notes Telephone Encounter - Brendon Wilburn Rectifier Operator - 12/18/2019 10:54 AM PDTCalled N P [...] PM PDT To: Renee Henson MD [facility] wanted to confirm dose of Propafenone. States patient was previously on 300mg, but new script was written for 450mg. They are wanting to confirm he is to increase PRN to 450mg. Please advise. ----- Message ----- From: Diana Zepeda CMA Sent: 12/17/2019 1:08 PM PDT To: Wendy Grey ph. [phone] docum ented in this encounter Plan of Treatment +--------+---------+ + + + | Date | Type | Specialty | Care Team | Description | +--------+---------+ + + + | 04/01/ | Office | Cardiology | Gerson Rey | | | 2019 | Visit | | MD [address] | | | | | | [address] | | | | | | [place] [address] | | | | | | [phone] | | | | | | | | +--------+---------+ + + + | 07/15/ | Office | Cardiology | Renee Henson, | | | 2020 | Visit | | MD Nino JONES | | | | | | [place] | | | | | | [address] | | | | | | | | +--------+---------+ + + + documented as of this encounter Visit Diagnoses Not on filedocumented in this encounter"
--- OUTSIDE RECORDS SUMMARY | 2020-03-20 22:56 | XMS ---
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 [facility] has no Care Guidelines for this patient. Claudine VISIT COUNT (12 MO.) [address] [facility] TOTAL 5 NOTE: Visits indicate total known visits. 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 - residential (current) use of aspirin - Personal history of nicotine dependence - Paroxysmal atrial fibrillation - Gastro-esophageal reflux disease without esophagitis 10/28/2019 14:03 [facility] [place] TYPE: Emergency COMPLAINT: - CHEST PAIN DIAGNOSES: - residential (current) use of aspirin - adjunct faculty for medical 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 (current) use of anticoagulants - Other long chain dyeing machine operator (current) drug therapy - Unspecified atrial fibrillation - Personal history of nicotine dependence - Essential (primary) hypertension - Chest pain, unspecified 10/04/2019 06:50 [facility] [place] TYPE: Emergency COMPLAINT: - RAPID HEART RATE DIAGNOSES: - Unspecified atrial fibrillation - Palpitations - Essential (primary) hypertension - adjunct faculty for medical terminology (current) use of aspirin - Other fpc (current) drug therapy INPATIENT VISIT TRACKING (12 MO.) No inpatient visits to display in this time frame [email or web address]
[2020-03-20] MEDS ORDERED: RYTHMOL SR225 MG PO (23:02)
--- NOTE | 2020-03-21 09:14 | EKG ---
[facility] [address] [facility] [place], [place] [address] Signed Normal sinus rhythm Normal ECG When compared with ECG of 18-MAR-2020 20:37, No significant change was found Confirmed by MORGAN FORD MD ([id number]) on 03/21/2020 9:14:05 AM Electronically Signed By: MORGAN FORD MD 03/21/20 0914 PATIENT NAME: PARISH SOUZA LANDY Electrocardiogram DATE OF : [birth year] PHYSICIAN: MORGAN FORD MD REPORT #: [id number] REPORT IS CONFIDENTIAL AND NOT TO BE RELEASED WITHOUT AUTHORIZATION
== END 2020-03-21 00:45 | disposition home or self-care (01) ==
LOC: ED 22:54
DX: R07.9 Chest pain, unspecified (principal); K21.9 Gastro-esophageal reflux disease without esophagitis; I10 Essential (primary) hypertension; I48.91 Unspecified atrial fibrillation; Z87.891 Personal history of nicotine dependence; Z79.899 Other long term (current) drug therapy
CPT/HCPCS: 71045; 80053; 83735; 84484; 85025; 93005; 93010; 99285-25

== ENCOUNTER 2024-02-09 18:37 | Emergency (ER) | payer OTHER ==
[~2024-02-09] VITALS: Ht 167.6 cm; Wt 82.0 kg
[~2024-02-09 18:37] MED LIST changes: +RYTHMOL SR225 MG PO
[2024-02-09] MEDS ORDERED: JANTOVEN5 MG PO (18:49)
[2024-02-09 19:20] VITALS: BP 129/76
== END 2024-02-09 19:20 | disposition home or self-care (01) ==
LOC: ED 18:37
DX: S90.01XA Contusion of right ankle, initial encounter (principal); W21.07XA Struck by softball, initial encounter; Y93.64 Activity, baseball; I10 Essential (primary) hypertension; Z87.891 Personal history of nicotine dependence; Z79.01 Long term (current) use of anticoagulants; Z79.899 Other long term (current) drug therapy
CPT/HCPCS: 73610; 99283-25